=== PATIENT | female | born 2000 | race Caucasian/White ===

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

== ENCOUNTER 2023-04-04 19:40 | Emergency (ER) | payer OTHER, SELFPAY ==
[2023-04-04] MEDS ORDERED: ACETAMINOPHEN 500 MG TAB ONE (20:15)
--- NOTE | 2023-04-04 21:10 | EDPHYS ---
Physician Documentation [facility] Name: Elizabeth Hodge Age: 22 yrs Sex: Female : 2000 Arrival Date: 04/04/2023 Time: 19:40 Bed 12 Private MD: ED Physician Monico Flowers HPI: 04/04 20:10 This 22 yrs old Female presents to ER via Ambulatory with complaints of Sore Throat. cp 20:10 The patient presents with sore throat. Onset: The symptoms/episode began/occurred this cp morning. Severity of symptoms: in the emergency department the symptoms are unchanged, despite home interventions. Associated signs and symptoms: Pertinent positives: headache, Pertinent negatives diarrhea, rhinorrhea, vomiting, cough. 20:10 Reports recently tested positive for influenza and strep. 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 - Social history:: Smoking status: Patient reports the use of cigarette tobacco products, smokes one-half pack cigarettes per day. ROS: 20:15 Constitutional: Positive for body aches, Negative for fever, poor PO intake. cp 20:15 Eyes: Negative for injury, pain, redness, and discharge. cp 20:15 ENT: Positive for sore throat, Negative for drainage from ear(s), ear pain, sinus congestion, difficulty swallowing, difficulty handling secretions. 20:15 Cardiovascular: Negative for chest pain. 20:15 Respiratory: Negative for cough, shortness of breath, wheezing. 20:15 Abdomen/GI: Negative for abdominal pain, vomiting, diarrhea, constipation. 20:15 Skin: Negative for rash. 20:15 Neuro: Positive for headache, Negative for altered mental status, dizziness, weakness. 20:15 All other systems are negative. Exam: 20:15 Constitutional: The patient appears in no acute distress, alert, awake, well developed, cp well nourished, overweight 20:15 Head/Face: Normocephalic, atraumatic. cp 20:15 Eyes: Periorbital structures: appear normal, Conjunctiva: normal, no exudate, no injection, Lids and lashes: appear normal, bilaterally. 20:15 ENT: External ear(s): are unremarkable, Ear canal(s): are normal, clear, TM's: bulging, is not appreciated, bilaterally, dullness, bilaterally, erythema, is not appreciated, bilaterally, Nose: is normal, Mouth: Lips: moist, Oral mucosa: moist, Posterior pharynx: Airway: no evidence of obstruction, patent, Tonsils: no enlargement, no exudate, swelling, is not appreciated, erythema, that is moderate, exudate, is not appreciated. 20:15 Neck: ROM/movement: is normal, is supple, no range of motions limitations, no meningismus, no nuchal rigidity, Lymph nodes: no appreciated lymphadenopathy. 20:15 Chest/axilla: Inspection: normal. 20:15 Cardiovascular: Rate: tachycardic, Rhythm: regular. 20:15 Respiratory: the patient does not display signs of respiratory distress, Respirations: normal, no use of accessory muscles, no retractions, labored breathing, is not present, Breath sounds: are clear throughout, no decreased breath sounds, no stridor, no wheezing. 20:15 Abdomen/GI: Exam negative for discomfort, distension, guarding, Inspection: abdomen appears normal. 20:15 Skin: no rash present. Vital Signs: 19:50 BP 134 / 82; Pulse 115; Resp 18 S; Temp 99.8(O); Pulse Ox 100% on R/A; Weight 104.33 kg as6 (R); Height 5 ft. 4 in. (R); Pain 8/10; 21:21 BP 132 / 78; Pulse 114; Resp 18 S; Temp 100.1(O); Pulse Ox 100% on R/A; as6 19:50 Body Mass Index 39.48 (104.33 kg, 162.56 cm) as6 19:50 Pain Scale: Adult as6 MDM: 19:56 Patient medically screened. cp 21:00 Differential diagnosis: apthous stomatitis, apthous ulcer, group A strep tonsillitis, cp mononucleosis, peritonsillar abscess retropharyngeal abcess tonsillitis, uvulitis, influenza. 21:10 Data reviewed: vital signs, nurses notes, lab test result(s). 04/04 20:03 Order name: Strep cp 04/04 21:08 Interpretation: Reviewed. cp 04/04 20:03 Order name: Influenza Screen (a \\T\\ B); Complete Time: 21:08 cp 04/04 20:04 Order name: COVID-19 SARS RT PCR; Complete Time: 21:08 as6 04/04 20:57 Order name: Throat Culture EDMS Administered Medications: 20:07 Not Given (Physician Discretion): Viscous Lidocaine Mucous Membrane Liquid (4 %) 5 ml cp Mucous Membrane once 20:11 Drug: Acetaminophen PO 1000 mg Route: PO; as6 21:20 Follow up: Response: No adverse reaction as6 Disposition Summary: 04/04/23 21:10 Discharge Ordered Location: Home cp Problem: new cp Symptoms: have improved cp Condition: Stable cp Diagnosis - Influenza due to unidentified influenza virus with other respiratory manifestations cp Followup: cp - With: Private Physician - When: 2 - 3 days - Reason: Worsening of condition Discharge Instructions: - Discharge Summary Sheet cp - Influenza, Adult cp Forms: - Medication Reconciliation Form cp - Thank You Letter cp - Antibiotic Education cp - Prescription Opioid Use cp - Patient Portal Instructions cp - Work release form as6 Prescriptions: - Ibuprofen 800 mg Oral Tablet - take 1 tablet by ORAL route every 8 hours As needed take with food; 30 tablet; cp Refills: 0, Product Selection Permitted - Tamiflu 75 mg Oral Capsule - take 1 tablet by ORAL route every 12 hours for 5 days; 10 tablet; Refills: 0, cp Product Selection Permitted Signatures: Dispatcher [employer] EDArnold Vaughn PA PA cp Slawson, Ashby, RN RN as6
--- NOTE | 2023-04-04 21:10 | ER ---
Nurse's Notes [facility] Name: Elizabeth Hodge Age: 22 yrs Sex: Female : 2000 Arrival Date: 04/04/2023 Time: 19:40 Bed 12 Private MD: Diagnosis: Influenza due to unidentified influenza virus with other respiratory manifestations Presentation: 04/04 19:50 Chief complaint: Patient states: "my tested positive for flu and strep and I'm as6 started to have the same symptoms". Coronavirus screen: At this time, the client does not indicate any symptoms associated with coronavirus-19. Ebola Screen: No symptoms or risks identified at this time. Initial Sepsis Screen: Does the patient meet any 2 criteria? No. Patient's initial sepsis screen is negative. Does the patient have a suspected source of infection? No. Patient's initial sepsis screen is negative. Risk Assessment: Do you want to hurt yourself or someone else? Patient reports no desire to harm self or others. Onset of symptoms was April 04, 2023. 19:50 Method Of Arrival: Ambulatory as6 19:50 Acuity: HAIR 4 as6 Triage Assessment: 19:52 General: Appears in no apparent distress. Behavior is calm, cooperative, Reports as6 feeling ill for. Pain: Complains of pain in left aspect of posterior pharynx and right aspect of posterior pharynx. EENT: Reports sore throat. 20:01 Respiratory: Respiratory effort is even, unlabored. 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 - Social history:: Smoking status: Patient reports the use of cigarette tobacco products, smokes one-half pack cigarettes per day. Screenin:01 [facility] ED Fall Risk Assessment (Adult) Score/Fall Risk Level 0 - 2 = Low Risk. Abuse as6 screen: Denies threats or abuse. Denies injuries from another. Nutritional screening: No deficits noted. Tuberculosis screening: No symptoms or risk factors identified. Vital Signs: 19:50 BP 134 / 82; Pulse 115; Resp 18 S; Temp 99.8(O); Pulse Ox 100% on R/A; Weight 104.33 kg as6 (R); Height 5 ft. 4 in. (R); Pain 8/10; 21:21 BP 132 / 78; Pulse 114; Resp 18 S; Temp 100.1(O); Pulse Ox 100% on R/A; as6 19:50 Body Mass Index 39.48 (104.33 kg, 162.56 cm) as6 19:50 Pain Scale: Adult as6 ED Course: 19:45 Patient arrived in ED. ag3 19:45 Arnold Potter PA is PHCP. cp 19:45 Monico Flowers MD is Attending Physician. cp 19:50 Juan Nelson, ELIZABETH is Primary Nurse. as6 19:52 Triage completed. as6 19:54 Arm band placed on. as6 20:01 Bed in low position. Call light in reach. Side rails up X 1. as6 21:20 Provided Education on: discharge teaching. as6 21:20 No provider procedures requiring assistance completed. Patient did not have IV access as6 during this emergency room visit. Administered Medications: 20:07 Not Given (Physician Discretion): Viscous Lidocaine Mucous Membrane Liquid (4 %) 5 ml cp Mucous Membrane once 20:11 Drug: Acetaminophen PO 1000 mg Route: PO; as6 21:20 Follow up: Response: No adverse reaction as6 Medication: 20:01 VIS not applicable for this client. as6 Outcome: 21:10 Discharge ordered by MD. cp 21:21 Discharged to home ambulatory. as6 21:21 Condition: stable 21:21 Discharge instructions given to patient, Instructed on discharge instructions, follow up and referral plans. medication usage, Demonstrated understanding of instructions, follow-up care, medications, Prescriptions given X 2. 21:22 Patient left the ED. as6 Signatures: Arnold Potter PA PA cp Gomez, Alice ag3 Juan Nelson, RN RN as6
[2023-04-04 21:33] VITALS: O2SAT 100
[2023-04-04 21:34] VITALS: BP 132/78; TEMP 100.1
== END 2023-04-04 21:22 | disposition home or self-care (01) ==
LOC: ER 19:40
DX: J11.1 Influenza due to unidentified influenza virus with other respiratory manifestations (principal)
CPT/HCPCS: 87070; 87081; 87635; 87804; 99283

== ENCOUNTER 2024-07-21 08:04 | Emergency (ER) | payer SELFPAY ==
[2024-07-21 08:54] LABS: Specific Gravity < 1.005 (1.005-1.030); Sqamous Epithelial <5 /HPF (None Seen); Urine Bacteria None Seen /HPF (<20); Urine Bilirubin NEGATIVE (Negative); Urine Blood 3+ (OVER) (Negative); Urine Clarity Extremely Turbid (Clear); Urine Color Light-Brown (Yellow); Urine Crystals Unidentified Few /HPF (None Seen); Urine Culture Reflex Order NOT NEEDED; Urine Glucose NEGATIVE (Negative); Urine Ketones NEGATIVE (Negative); Urine Micro Reflex YN NO BILL MICROSCOPIC; Urine Nitrite NEGATIVE (Negative); Urine Protein TRACE (Negative); Urine RBC <5 /HPF (None Seen); Urine Urobilinogen Normal (Normal); Urine WBC <5 /HPF (<5); Urine WBC Clump Rare /HPF (None Seen); Urine Yeast (Budding) Trace /HPF (None Seen)
[2024-07-21 09:26] LABS: Absolute Lymphocytes (CBC) 0.8 K/uL (0.7-4.9); Absolute Monocytes 0.4 K/uL (0.1-1.3); Absolute Neutrophil 5.3 K/uL (1.8-8.0); Basophils % 0.7 % (0-1.3); Eosinophils % 0.6 % (0-4.4); Hematocrit 25.7 % (36.0-45.0); Hemoglobin 9.6 g/dL (12.0-15.0); Lymphocytes % 11.6 % (15.3-44.8); MCH 32.9 pg (27.0-35.0); MCHC 37.3 g/dL (32.0-36.0); MCV 88.3 fL (80-100); MPV 7.4 fL (7.6-11.3); Monocytes % 6.1 % (3.3-12.3); Nucleated Red Blood Cells % 0.1 % (0-0); Platelets 198 thou/uL (152-406); RBC Red Blood Cell Count 2.91 M/uL (3.86-4.86); Red Cell Distribution Width 20.9 % (12.1-15.2)
[2024-07-21 09:48] LABS: Albumin/Globulin Ratio 1.3 (1.1-1.8); Anion Gap 8.1 mEq/L (5.0-15.0); Globulin 3.1 g/dL (2.3-3.5); Potassium 3.1 mEq/L (3.5-5.1); Protein, Total 7.1 g/dL (6.4-8.2)
--- NOTE | 2024-07-21 10:11 | RAD REPORT ---
EXAMINATION: US Transvaginal OB COMPARISON: None. HISTORY: [facility] MAIN vaginal bleeding and Bed: TECHNIQUE: Real-time ultrasound was performed through the pelvis. A transvaginal scan was performed t o better visualize the intrauterine contents and adnexa. FINDINGS: There is flattened cystic component near the fundus measuring 6 x 6 x 3 mm. No pole or ca rdiac pulsations identified. A second smaller fluid component near the fundal endometrium, could represent another cystic component or fluid measuring 1-2 mm in thickness. Both ovaries are visualized. Dominant right ovarian mildly complex cyst measuring up to 2.5 cm. Small left ovarian 1.6 cm cystic lesion with ring of fire vascularity suggesting a corpus luteum. There is no free fluid in the cul-de-sac. Measurements and Calculations: Dominant gestational sac mean diameter: 5.0 mm, consistent with a sonographic age of 5 weeks, 2 days. IMPRESSION: Small cystic spaces within the fundal endometrium, one of which may represent a gestational sac. No f etal pole or cardiac pulsations are identified. Given size of the dominant cystic component, it would correspond to a sonographic gestational age of 5 weeks and 2 days. Correlation with beta hCG levels recommended. A follow-up ultrasound would be suggested within one we ek to reevaluate for viability.
--- NOTE | 2024-07-21 10:24 | EDPHYS ---
Physician Documentation [facility] Name: Elizabeth Hodge Age: 23 yrs Sex: Female : 2000 Arrival Date: 07/21/2024 Time: 08:04 Bed 8 Private MD: ED Physician Surjit Harrison HPI: 07/21 08:39 This 23 yrs old Female presents to ER via Ambulatory with complaints of Vaginal ec2 Bleeding, + Preg <12wks, Pelvic Pain. 08:39 Patient is arrives today for vaginal bleeding onset of 2 days ago. Reports that ec2 she has been having some vaginal bleeding which she describes as light red in color, reports she is having some lower abdominal discomfort and pelvic pain. Patient reports she is approximately 9 weeks . G2, P0.. Historical: - Allergies: 08:27 No Known Allergies; hb - PMHx: 10:13 Hereditary Spherocytosis; ec2 - PSHx: 08:27 Cholecystectomy; hb - Immunization history:: Adult Immunizations up to date. - Infectious Disease History:: Denies. - Social history:: Smoking status: Patient denies any tobacco usage or history of. ROS: 08:39 Constitutional: as per hpi ec2 Exam: 08:39 Constitutional: GEN: NAD Head: atraumatic Eyes: EOMI Ears: External ears are ec2 normal. CV: regular rate LUNGS: no respiratory distress ABD: non-distended SKIN: no evidence of rashes MSK: no evidence of trauma Vital Signs: 08:18 BP 134 / 86; Pulse 88; Resp 16; Temp 97.6(TE); Pulse Ox 100% on R/A; Weight 104.33 kg; hb Height 5 ft. 4 in. ; Pain 5/10; 10:21 BP 137 / 80; Pulse 86; Resp 16; Pulse Ox 99% ; Pain 0/10; ss 08:18 Body Mass Index 39.48 (104.33 kg, 162.56 cm) hb 08:18 Pain Scale: Adult hb 10:21 Pain Scale: Adult ss MDM: 08:10 Medical Screening Exam initiated ec2 08:39 Data reviewed: vital signs. ED course: Patient arrives today for evaluation of vaginal ec2 bleeding in setting of . Examination is nonactionable. Will obtain lab work, ABO Rh and ultrasound. Differential includes normal with vaginal bleeding, miscarriage, subchorionic hemorrhage.. 10:06 ED course: hCG appropriately elevated. Patient is A+ blood type, will forego RhoGAM. ec2 Metabolic profile shows slight total bili elevation, compared to previous, patient with previously elevated total bilirubin as well. Pending ultrasonography. Patient without any pinpoint tenderness of the right upper quadrant to indicate choledocholithiasis, patient is otherwise nontoxic, doubt acute obstructive process. Patient does have a history of hereditary spherocytosis which is likely cause of pt's t bili elevation. 10:22 ED course: Ultrasound shows likely at 5 weeks and 2 days, very early ec2 gestational age, will have patient follow-up with obstetrics for repeat hCG and repeat ultrasonography. Discussed results with the patient and she agrees. Return precautions given.. 07/21 08:10 Order name: CBC with Diff ec2 07/21 08:10 Order name: CMP; Complete Time: 10:06 ec2 07/21 08:10 Order name: HCG-Quantitative; Complete Time: 10:06 ec2 07/21 08:10 Order name: Abo/rh Typing; Complete Time: 09:56 ec2 07/21 08:10 Order name: UAM; Complete Time: 09:46 ec2 07/21 08:10 Order name: Transvaginal OB US; Complete Time: 10:22 ec2 07/21 08:10 Order name: IV Start; Complete Time: 09:22 ec2 Administered Medications: No medications were administered Disposition Summary: 07/21/24 10:23 Discharge Ordered Condition: Stable ec2 Diagnosis - Abnormal uterine and vaginal bleeding, unspecified ec2 - Early , 5 weeks ec2 Followup: ec2 - With: Private Physician - When: - Reason: Re-evaluation by your physician Discharge Instructions: - Discharge Summary Sheet ec2 - Vaginal Bleeding During , First Trimester, [id number] ec2 Forms: - Work release form ss - Family Work Release ss - Medication Reconciliation Form ec2 - Antibiotic Education ec2 - Prescription Opioid Use ec2 - Patient Portal Instructions ec2 - Leadership Thank You Letter ec2 Signatures: Dispatcher [employer] Andreina Meyers RN RN hb Corral, Edwin, MD MD ec2 Corrections: (The following items were deleted from the chart) 10:13 10:06 ED course: hCG appropriately elevated. Patient is A+ blood type, will forego ec2 RhoGAM. Metabolic profile shows slight total bili elevation, compared to previous, patient with previously elevated total bilirubin as well. Pending ultrasonography. Patient without any pinpoint tenderness of the right upper quadrant to indicate choledocholithiasis, patient is otherwise nontoxic, doubt acute obstructive process.. ec2
--- NOTE | 2024-07-21 10:24 | ER ---
Nurse's Notes [facility] Name: Elizabeth Hodge Age: 23 yrs Sex: Female : 2000 Arrival Date: 07/21/2024 Time: 08:04 Bed 8 Private MD: Diagnosis: Abnormal uterine and vaginal bleeding, unspecified;Early , 5 weeks Presentation: 07/21 08:18 Chief complaint: Lower abdominal and pelvic pain x 2 days, bright red vaginal bleeding hb this morning. Pt is approx 9 weeks , LMP 05/20, . Coronavirus screen: At this time, the client does not indicate any symptoms associated with coronavirus-19. Ebola Screen: No symptoms or risks identified at this time. Initial Sepsis Screen: Does the patient meet any 2 criteria? No. Patient's initial sepsis screen is negative. Does the patient have a suspected source of infection? No. Patient's initial sepsis screen is negative. Risk Assessment: Do you want to hurt yourself or someone else? Patient reports no desire to harm self or others. Onset of symptoms was July 20, 2024. 08:18 Method Of Arrival: Ambulatory hb 08:18 Acuity: HAIR 3 hb Historical: - Allergies: 08:27 No Known Allergies; hb - PMHx: 10:13 Hereditary Spherocytosis; ec2 - PSHx: 08:27 Cholecystectomy; hb - Immunization history:: Adult Immunizations up to date. - Infectious Disease History:: Denies. - Social history:: Smoking status: Patient denies any tobacco usage or history of. Screenin:50 Abuse screen: Denies threats or abuse. Denies injuries from another. Nutritional ss screening: No deficits noted. Tuberculosis screening: Never had TB. Assessment: 08:50 General: Appears in no apparent distress. comfortable, Behavior is calm, cooperative. ss Pain: Denies pain. Respiratory: Airway is patent Respiratory effort is even, unlabored, Respiratory pattern is regular, symmetrical. : Reports vaginal bleeding that is. EENT: Oral mucosa is moist. 09:20 Reassessment: Pt c/o nausea. States, "I think I'm nauseated since I haven't had ss anything to eat." Saltine crackers and maria alejandra sofi given. 10:08 Reassessment: Patient appears in no apparent distress at this time. Patient and/or ss family updated on plan of care and expected duration. Pain level reassessed. Patient is alert, oriented x 3, equal unlabored respirations, skin warm/dry/pink. nausea has improved. Vital Signs: 08:18 BP 134 / 86; Pulse 88; Resp 16; Temp 97.6(TE); Pulse Ox 100% on R/A; Weight 104.33 kg; hb Height 5 ft. 4 in. ; Pain 5/10; 10:21 BP 137 / 80; Pulse 86; Resp 16; Pulse Ox 99% ; Pain 0/10; ss 08:18 Body Mass Index 39.48 (104.33 kg, 162.56 cm) hb 08:18 Pain Scale: Adult hb 10:21 Pain Scale: Adult ED Course: 08:09 Patient arrived in ED. 5 08:10 Surjit Harrison MD is Attending Physician. ec2 08:26 Triage completed. hb 08:27 Arm band placed on. 08:41 Bernadette Larose RN is Primary Nurse. 08:50 Patient has correct armband on for positive identification. ss 09:21 Transvaginal OB US In Process Unspecified. EDMS 09:23 Abo/rh Typing Sent. ss 09:23 HCG-Quantitative Sent. ss 09:23 CMP Sent. ss 09:24 CBC with Diff Sent. 10:28 No provider procedures requiring assistance completed. IV discontinued, intact, ss bleeding controlled, No redness/swelling at site. Pressure dressing applied. Administered Medications: No medications were administered Medication: 08:50 VIS not applicable for this client. Outcome: 10:23 Discharge ordered by . ec2 10:28 Discharged to home ambulatory, 10:28 Condition: good 10:28 Discharge instructions given to patient, family, Instructed on discharge instructions, follow up and referral plans. Demonstrated understanding of instructions, follow-up care, 10:32 Patient left the ED. Signatures: Dispatcher [employer] Bernadette Quiñones RN RN Andreina Lopez RN RN Aimee Pereyra [facility] Surjit Harrison MD MD ec2
[2024-07-21 10:39] VITALS: TEMP 97.6
[2024-07-21 10:41] VITALS: BP 137/80; O2SAT 99
[2024-07-21 11:47] LABS: Blood Morphology Comment NOTED (NOT SEEN); Platelet Estimate ADEQ; Polychromasia 1+; White Blood Cell Scan OK (OK)
== END 2024-07-21 10:32 | disposition home or self-care (01) ==
LOC: ER 08:04
DX: O20.9 Hemorrhage in early pregnancy, unspecified (principal); Z3A.01 Less than 8 weeks gestation of pregnancy
CPT/HCPCS: 36415; 76817; 80053; 81001; 84702; 85025; 86900; 86901; 99283

== ENCOUNTER 2025-05-16 09:25 | Emergency (ER) | payer OTHER ==
--- OUTSIDE RECORDS SUMMARY | 2025-05-16 09:32 | XMS REPORT | Continuity of Care Document ---
Author Name Unknown Address [address] [facility] [address] [place] [address] [facility] Address [address] [facility] [address] [place] [address] Care Team Providers Care Fixed Income Manager Name Role Phone Tessie Saxena [facility] Primary Care Physician [phone] EZEKIEL CLEANING Attending Clinician Unavailable ROMAN XIAO Attending Clinician Unavailable Doctor Unassigned, [place] Attending Clinician U KOSTA Lyn Attending Clinician Unavaila ELIZABETH Dang Attending Clinician Unavailable ELIZABETH QUINONEZ Attending Clinician Unavailable Parth Novak MD Attending Clinician [phone] Renato Murphy MD Attending Clinician [phone] JAIR COOPER Attending Clinician Unavailable Bipin Evans Attending Clinician + SAL ABDUL Attending Clinician Unavailable SAL ABDUL Attending Clinician Unavailable ALONDRA PISANO Attending Clinician Unavailable BIPIN MORAN Attending Clinician Unavail able Ultrasound, Ang[facility] Attending Clinician UnavailBryn Ponce MD Attending Clinician [phone] BRYN SUBRAMANIAN Attending Clinician Unavailable BRYN SUBRAMANIAN Attending Clinician Unavailable BRYN SUBRAMANIAN Attending Clinician Unavailable ADUMSMILEY Attending Clinician Unavailable ADUM, SMILEY Zelaya Attending Clinician Unavailable JENELLE RUDOLPH Attending Clinician Unavailable Risk, Jwa-Kvxyc-Bh/High Attending Clinician Unav ailable Ronni WHCNJenelle Amador Attending Clinician LANDON CHAPA Attending Clinician Unavailable LANDON CHAPA Attending Clinician Unavailable 1, [facility] Attending Clinician Unavailab ralph Chapa MD, Landon Cates Attending Clinician [phone] NA BAGLEY Attending Clinician NA Rodas Attending Clinician DIMITRIS Garnica Attending Clinician Unavailable DIMITRIS HIGHTOWER Attending Clinician Unavailable Visit, [facility] Nurse Attending Clinician Unava ilpatricio Moran [facility], Bipin Orr Attending Clinician + MARY ELLEN FERNANDEZ Attending Clinician Unavailable Trimester, [facility] Res-1st Attending Clinician Unavailable Rebecca Flowers MD Attending Clinician [phone] Gaetano May MD Attending Clinician [phone] Sunita Pitt RN Attending Clinician Unavailable Raul FREIRE, Edwin Zelaya Attending Clinician [phone] Anahi Ham MD, Elias Attending Clinician + Shadia Shoemaker Attending Clinician [phone] SHADIA ELLSWORTH Attending Clinician Unavailab le Doctor Unassigned, [place] Attending Clinician U navailALONDRA Villagran Admitting Clinician Unavailable ADUMSMILEY Admitting Clinician Unavailable ELIZABETH QUINONEZ Admitting Clinician Unavailable NA BAGLEY Admitting Clinician DIMITRIS Garnica Admitting Clinician Unavailable Payers Payer Name Policy Type Policy Number Effective Date Expirati on Date Source [facility] [id number] 2024 00:00:00 [facility] [id number] 2020 00:00:00 [place] [id number] 2020 00:00:00 [facility] [id number] 2024 00:00:00 FAUSTO BARBOUR [id number] 2024 00:00:00 Problems Condition Name Condition Details Condition Category Status Onset Date Resolution Date Last Treatment Date Treating Clinician Comments Source Acute blood loss anemia Acute blood loss anemia Disease Active 03-15 00:00: 00 [facility] Pre-eclamp mickey, delivered Pre-eclamp mickey, delivered Disease Active 03-14 00:00: 00 [facility] Morbid obesity with body mass index of 40.0-49.9 Morbid obesity with body mass index of 40.0-49.9 Disease Active 02-13 00:00: 00 [facility] Spherocyto sis Spherocyto sis Problem Active 10-05 00:00: 00 [facility] Problem Active 10-05 00:00: 00 [facility] High risk teen in first trimester High risk teen in first trimester Disease Active 03-28 00:00: 00 [facility] Spherocyto sis Spherocyto sis Disease Active 03-28 00:00: 00 [facility] (spontaneo us vaginal delivery) (spontaneo us vaginal delivery) Disease Resolve d 03-14 00:00: 00 2025-04-04 00:00:00 2025-04-04 13:39:52 [facility] Single live Single live Disease Resolve d 03-14 00:00: 00 2025-04-04 00:00:00 2025-04-04 13:39:53 [facility] Positive GBS test Positive GBS test Disease Resolve d 6 00:00: 00 2025-04-04 00:00:00 2025-04-04 13:39:54 [facility] Obstetrica l laceration Obstetrica l laceration Disease Resolve d 03-14 00:00: 00 2025-04-04 00:00:00 2025-04-04 13:39:25 [facility] 39 weeks gestation of 39 weeks gestation of Disease Resolve d 2024-0 6-23 00:00: 00 2025-04-04 00:00:00 2025-04-04 13:39:50 [facility] Encounter for elective induction of labor Encounter for elective induction of labor Disease Resolve d 2024-0 6-23 00:00: 00 2025-04-04 00:00:00 2025-04-04 13:40:31 [facility] Current every day vaping: Nicotine Current every day vaping: Nicotine Disease Resolve d 0 6-23 00:00: 00 2025-04-04 00:00:00 2025-04-04 13:39:51 [facility] NST (non-stres s test) nonreactiv e NST (non-stres s test) nonreactiv e Disease Resolve d 0 5-27 00:00: 00 2025-04-04 00:00:00 2025-04-04 13:39:49 [facility] Cramping affecting , antepartum Cramping affecting , antepartum Disease Resolve d 0 5-27 00:00: 00 2025-04-04 00:00:00 2025-04-04 13:39:24 [facility] Two vessel cord Two vessel cord Disease Resolve d 0 4-15 00:00: 00 2025-04-04 00:00:00 2025-04-04 13:39:47 [facility] Anemia of mother in , antepartum Anemia of mother in , antepartum Disease Resolve d 0 4-01 00:00: 00 2025-04-04 00:00:00 2025-04-04 13:39:37 [facility] Susceptibl e to varicella (non-immun e), currently Susceptibl e to varicella (non-immun e), currently Disease Resolve d 0 4-01 00:00: 00 2025-04-04 00:00:00 2025-04-04 13:39:36 [facility] Cervical Papanicola ou smear negative within last 12 months Cervical Papanicola ou smear negative within last 12 months Disease Resolve d 2024-0 3-31 00:00: 00 2025-04-04 00:00:00 2025-04-04 13:39:36 [facility] History of miscarriag e, currently History of miscarriag e, currently Disease Resolve d 2024-0 3-27 00:00: 00 2025-04-04 00:00:00 2025-04-04 13:39:32 [facility] Low lying placenta, antepartum Low lying placenta, antepartum Disease Resolve d 2024-0 3-27 00:00: 00 2025-04-04 00:00:00 2025-04-04 13:39:23 [facility] Supervisio n of high-risk Supervisio n of high-risk Disease Resolve d 7-09 00:00: 00 2025-04-04 00:00:00 2025-04-04 13:39:29 [facility] Obesity in Obesity in Disease Resolve d 2019-0 7-09 00:00: 00 2025-04-04 00:00:00 2025-04-04 13:40:37 [facility] 35 weeks gestation of 35 weeks gestation of Disease Resolve d 0 5-27 00:00: 00 2025-02-21 00:00:00 2025-02-21 10:18:09 [facility] Maternal varicella, non-immune Maternal varicella, non-immune Disease Resolve d 2019- 7-10 00:00: 00 2024-12-14 00:00:00 2024-12-14 09:48:46 Overview: Formattin g of this note might be different from the original. Address in [facility] Primigravi da in first trimester Primigravi da in first trimester Disease Resolve d 2019-0 7-09 00:00: 00 2024-12-14 00:00:00 2024-12-14 09:48:28 [facility] Urinary tract infection in mother during first trimester of Urinary tract infection in mother during first trimester of Disease Resolve d 2019-0 7-09 00:00: 00 2024-12-14 00:00:00 2024-12-14 09:47:12 [facility] BMI 33.0-33.9, adult BMI 33.0-33.9, adult Disease Resolve d 03-28 00:00: 00 2024-12-14 00:00:00 2024-12-14 09:47:35 [facility] Allergies, Adverse Reactions, Alerts Allergy Name Allergy Type Status Severity Reaction(s) Onset Date Inactive Date Treating Clinician Comments Source NO KNOWN ALLERGIE S Drug Class Active [facility] Social History Social Habit Start Date Stop Date Quantity Comments Source ASSERTION 2024-06-26 00:00:00 [facility] History SDOH Alcohol Std Drinks [facility] History SDOH Alcohol Binge [facility] Exposure to SARS-CoV-2 (event) Not sure [facility] History of tobacco use Current smoker [facility] Sexual orientation [facility] Alcoholic beverage intake 2025-03-12 00:00:00 2025-03-12 00:00:00 Lifetime non-drinker (finding) [facility] History of Social function 2024-12-28 00:00:00 2024-12-28 00:00:00 [facility] Tobacco use and exposure 2024-12-14 00:00:00 2024-12-14 00:00:00 Former smokeless tobacco user [facility] Alcohol intake 2020-06-06 00:00:00 2020-06-06 00:00:00 Lifetime non-drinker (finding) [facility] History SDOH Alcohol Frequency 2020-03-28 00:00:00 2020-03-28 00:00:00 1 [facility] Sex assigned at 2000 00:00:00 2000 00:00:00 [facility] Smoking Status Start Date Stop Date Source Never Smoker [facility] Unknown if ever smoked [facility] Ex-smoker 2024-12-14 00:00:00 2024-12-14 00:00:00 [facility] Medications Ordered Medication Name Filled Medication Name Start Date Stop Date Current Medication? Ordering Clinician Indication Dosage Frequency Signature (SIG) Comments Components Source [id number] fum-folic 27 mg iron- 1 mg folic tablet [id number] fum-folic 27 mg iron- 1 mg folic tablet 03-15 00:00: 00 Yes [id number] 1{tbl} Take 1 tablet by mouth in the morning. [facility] docusate 100 mg capsule docusate 100 mg capsule 03-15 00:00: 00 Yes [id number] 200mg Take 2 capsules by mouth once daily as needed for Constipati on. [facility] ferrous sulfate 325 mg (65 mg iron) tablet ferrous sulfate 325 mg (65 mg iron) tablet 03-15 00:00: 00 Yes [id number] 325mg Take 1 tablet by mouth in the morning. [facility] ibuprofen 800 mg tablet ibuprofen 800 mg tablet 03-15 00:00: 00 Yes [id number] 800mg Take 1 tablet by mouth every 8 hours as needed (pain). Take with food or milk. [facility] ibuprofen (IBU) tablet 600 mg ibuprofen (IBU) tablet 600 mg 03-14 13:15: 00 03-15 19:12 :50 Yes 600mg 600 mg, Oral, TID, First dose on Wed03/14/25 at 0815, Until Discontinu ed, Routine [facility] acetaminoph en (TYLENOL) tablet 650 mg acetaminoph en (TYLENOL) tablet 650 mg 03-14 12:00: 00 03-15 19:12 :50 Yes 650mg 650 mg, Oral, TID, First dose on Wed03/14/25 at 0700, Until Discontinu ed, Routine [facility] rho(D) immune globulin (RHOPHYLAC) injection 300 mcg 03-14 11:45: 13 03-15 19:12 :50 No 300ug [facility] diphenhydrA MINE (BENADRYL) tablet 25 mg 03-14 11:45: 07 03-15 19:12 :50 No 25mg [facility] ondansetron (ZOFRAN (PF)) injection 4 mg 03-14 11:45: 07 03-15 19:12 :50 No 4mg [facility] simethicone (GAS RELIEF (SIMETHICON E)) chewable tablet 160 mg 03-14 11:45: 07 03-15 19:12 :50 No 160mg [facility] docusate (COLACE) capsule 200 mg docusate (COLACE) capsule 200 mg 03-14 11:45: 07 03-15 19:12 :50 Yes 200mg 200 mg, Oral, QDAILYPRN, Starting on Wed03/14/25 at 0645, Until Wed03/15/25 at 1412, Routine, Constipati on [facility] magnesium hydroxide (MILK OF MAGNESIA) 400 mg/5 mL suspension 30 mL 03-14 11:45: 07 03-15 19:12 :50 No 30mL [facility] benzocaine- menthol (DERMOPLAST ) 20-0.5 % topical spray benzocaine- menthol (DERMOPLAST ) 20-0.5 % topical spray 03-14 11:45: 07 03-15 19:12 :50 Yes Topical, PRN, Starting on Wed03/14/25 at 0645, Until Wed03/15/25 at 1412, Routine, Perineum discomfort [facility] ondansetron (ZOFRAN (PF)) injection 4 mg 03-14 10:15: 00 03-14 08:03 :00 No 4mg 4 mg, Slow IV Push, ONCE, On Wed03/14/25 at 0515, For 1 dose, Please give medication over 2-5 minutes. [facility] lidocaine 2% (XYLOCAINE) 20 mg/mL (2 %) injection 03-13 23:15: 00 03-14 11:52 :11 No Epidural, ONCE INTRA PROCEDURE, Starting on Wed03/13/25 at 1815, Until Wed03/14/25 at 0652, Routine, Intra-op [facility] bupivacaine (preserv free) (SENSORCAIN E MPF) 0.25 % (2.5 mg/mL) injection 03-13 23:15: 00 03-14 11:52 :11 No Epidural, ONCE INTRA PROCEDURE, Starting on Wed03/13/25 at 1815, Until Wed03/14/25 at 0652, Routine, Intra-op [facility] Oxytocin in Normal Saline 30 unit/500 mL IV infusion Soln Oxytocin in Normal Saline 30 unit/500 mL IV infusion Soln 03-13 13:15: 00 03-14 11:45 :12 Yes 0mU/min 0-42 marquis-unit s/min (0-42 mL/hr), IV Infusion, CONTINUOUS , Starting on Wed03/13/25 at 0830, Infuse IV through a controlled infusion pump at a proximal port on the peripheral IV line. Oxytocin may be increased to 30 milliunits when ordered by a 3rd or 4th year resident or attending physician/ faculty. 3rd or 4th year resident must document a note that the increase to 30 milliunits was discussed with faculty. Oxytocin may be increased to 42 milliunits when ordered by a 3rd or 4th year resident or attending physician/ faculty. 3rd or 4th year resident must document a note that the increase to 42 milliunits was discussed with faculty. Max 42 marquis-unit s/min. Oxytocin shall be maintained at a rate that achieves adequate contractio ns. "Adequate contractio ns" means 3-5 contractio ns in 10 minutes averaged over a 30-minute window -or- at least 200 MVU every 10 minutes for 2 hours if an IUPC is in place. Incrementa l dosage of oxytocin is determined by uterine and response; therefore the RN may increase or decrease the dosage by 6mu or discontinu e oxytocin based on maternal and assessment . See policy 7.11.52. For post-deliv vincent uterotonic : Increase to 300 mL/hr for 1 hr then 150 mL/hr for 1 hr. For post delivery uterine atony: Start at 600 mL/hr for 1 hr then 150 mL/hr for 1 hr. [facility] lidocaine-e pinephrine (XYLOCAINE W/EPINEPHRI NE) 1.5 %-1:200,000 injection 03-13 08:54: 00 03-14 11:52 :12 No Epidural, ONCE INTRA PROCEDURE, Starting on Wed03/13/25 at 0354, Until Wed03/14/25 at 0652, Routine, Intra-op [facility] PIB ropivacaine 0.2 % (NAROPIN (PF)) epidural infusion 03-13 08:54: 00 03-14 11:52 :12 No Epidural, CONTINUOUS PRN, Starting on Wed03/13/25 at 0354, Until Wed03/14/25 at 0652, Routine, Intra-op [facility] sodium citrate-cit gregg acid (BICITRA) 500-334 mg/5 mL solution 30 mL 03-13 08:13: 53 03-13 08:42 :00 No 30mL 30 mL, Oral, PRE-PROCED URE ONCE, 1 dose, Starting on Wed03/13/25 at 0313, Until Wed03/13/25 at 0342, Routine, Surgery/Pr ocedure [facility] lactated ringers IV infusion 500 mL 03-13 08:13: 53 03-13 09:13 :43 No 500mL at 999 mL/hr, 500 mL, IV Infusion, PRN - SEE INSTRUCTIO NS, 1 dose, Starting on Wed03/13/25 at 0313, Until Wed03/13/25 at 0413, Routine [facility] morpHINE injection 4 mg morpHINE injection 4 mg 03-13 06:00: 00 03-13 05:21 :00 Yes 4mg 4 mg, Slow IV Push, ONCE, 1 dose, On Wed03/13/25 at 0100, Routine [facility] miSOPROStoL (CYTOTEC) tablet 25 mcg miSOPROStoL (CYTOTEC) tablet 25 mcg 03-12 22:00: 00 03-12 23:02 :00 Yes 25ug 25 mcg, Vaginal, ONCE, 1 dose, On Wed03/12/25 at 1700, Routine [facility] D5W-LR IV infusion 1,000 mL 03-12 19:23: 15 03-14 11:45 :12 No 1000mL at 1-75 mL/hr, IV Infusion, TITRATE, Starting on Wed03/12/25 at 1423, Until Wed03/14/25 at 0645, Routine [facility] PNV 67-iron ps-folate no.1-dha (VITAFOL ULTRA) 29 mg iron- 1 mg-200 mg Cap 01-10 00:00: 00 03-15 00:00 :00 No [id number] 09 1{tbl} Take 1 tablet by mouth in the morning for 180 days. [facility] foLIC acid 1 mg tablet 12-29 00:00: 00 03-15 00:00 :00 No [id number] 1mg Take 1 tablet by mouth in the morning for 210 days. [facility] ferrous sulfate 325 mg (65 mg iron) tablet 12-19 00:00: 00 03-15 00:00 :00 No [id number] 325mg Take 1 tablet by mouth in the morning and 1 tablet in the evening. [facility] ascorbic acid, vitamin C, 500 mg tablet 12-19 00:00: 00 03-15 00:00 :00 No [id number] 500mg Take 1 tablet by mouth in the morning and 1 tablet at noon and 1 tablet in the evening. [facility] ferrous sulfate (IRON) 325 mg (65 mg iron) tablet 12-14 09:30: 53 03-12 00:00 :00 No 325mg Take 1 tablet by mouth in the morning and 1 tablet in the evening. [facility] nitrofurant oin monohyd/m-c ryst (MACROBID ORAL) 12-14 09:16: 24 03-12 00:00 :00 No Take by mouth. [facility] multivitami n ( VITAMIN) tablet 12-14 00:00: 00 01-10 00:00 :00 No [id number] 09 1{tbl} Take 1 tablet by mouth in the morning. [facility] ferrous gluconate 324 mg (38 mg iron) tablet 18 00:00: 00 03-12 00:00 :00 No 324mg Take 1 tablet by mouth in the morning and 1 tablet in the evening. [facility] ketorolac (TORADOL) injection 15 mg 02-10 07:30: 00 02-10 07:18 :00 No 15mg 15 mg, Slow IV Push, ONCE, 1 dose, On Wed02/11/24 at 0230, KIRK [facility] methocarbam oL (ROBAXIN) tablet 1,000 mg 02-10 06:45: 00 02-10 07:09 :00 No 1000mg 1,000 mg, Oral, ONCE, 1 dose, On Wed02/11/24 at 0145, KIRK [facility] FOLIC ACID ORAL 03-28 15:26: 29 Yes Take by mouth. [facility] nitrofurant oin monohyd/m-c ryst (MACROBID ORAL) 03-28 15:26: 29 Yes Take by mouth. [facility] nitrofurant oin monohyd/m-c ryst (MACROBID ORAL) 03-28 10:26: 29 Yes Take by mouth. [facility] vit 33-iron-fol ic-dha (SELECT-OB + DHA) 29 mg iron-1 mg -250 mg combo pack 03-28 00:00: 00 Yes [id number] 1{packe t} Take 1 Packet by mouth daily. [facility] vit 33-iron-fol ic-dha (SELECT-OB + DHA) 29 mg iron-1 mg -250 mg combo pack 03-28 00:00: 00 01-10 00:00 :00 No [id number] 1{packe t} Take 1 Packet by mouth daily. [facility] No [facility] ferrous gluconate 324 mg (38 mg iron) tablet Take 1 tablet every day by oral route. ferrous gluconate 324 mg (38 mg iron) tablet Take 1 tablet every day by oral route. No 1 Q1D ferrous gluconate 324 mg (38 mg iron) tablet Take 1 tablet every day by oral route. [facility] Immunizations Ordered Immunization Name Filled Immunization Name Date Status Comments Source TDAP 2025-01-10 00:00:00 Completed [facility] DTAP 2005-12-24 00:00:00 Completed [facility] IPV 2005-12-24 00:00:00 Completed MMR 2005-12-24 00:00:00 Completed DTAP 2003-05-09 00:00:00 Completed Heamophilus Influenza B 2003-05-09 00:00:00 Completed Pneumococcal 7 Conjugate, PCV7 (Prevnar7) 2003-05-09 00:00:00 Completed Pneumococcal 7 Conjugate, PCV7 (Prevnar7) 2003-01-17 00:00:00 Completed Hep B, Unspecified Formulation 2002-11-07 00:00:00 Completed MMR 2002-11-07 00:00:00 Completed Varicella (varivax)(chicken pox) 2002-11-07 00:00:00 Completed DTAP 2002-09-26 00:00:00 Completed Heamophilus Influenza B 2002-09-26 00:00:00 Completed IPV 2002-09-26 00:00:00 Completed Hep B, Unspecified Formulation 2002-06-15 00:00:00 Completed Heamophilus Influenza B 2002-06-15 00:00:00 Completed IPV 2002-06-15 00:00:00 Completed DTAP 2002-06-15 00:00:00 Completed DTAP 2001 00:00:00 Completed Hep B, Unspecified Formulation 2001 00:00:00 Completed Heamophilus Influenza B 2001 00:00:00 Completed IPV 2001 00:00:00 Completed Vital Signs Vital Name Observation Time Observation Value Comments S ke Systolic blood pressure 2025-04-04 18:24:00 123 mm[Hg] [facility] Diastolic blood pressure 2025-04-04 18:24:00 79 mm[Hg] [facility] Heart rate 2025-04-04 18:24:00 105 [facility] 2025-04-04 18:24:00 35.61 Cristina [facility] Respiratory rate 2025-04-04 18:24:00 20 /min [facility] Body height 2025-04-04 18:24:00 160 cm [facility] Body weight 2025-04-04 18:24:00 109.799 kg [facility] BMI 2025-04-04 18:24:00 42.88 kg/m2 [facility] Systolic blood pressure 2025-03-21 18:00:00 138 mm[Hg] Manual BP [facility] Diastolic blood pressure 2025-03-21 18:00:00 72 mm[Hg] Manual BP [facility] Heart rate 2025-03-21 17:57:00 65 /min [facility] Body temperature 2025-03-21 17:57:00 36.67 Cristina [facility] Body weight 2025-03-21 17:57:00 113.581 kg [facility] BMI 2025-03-21 17:57:00 44.36 kg/m2 [facility] Systolic blood pressure 2025-03-15 12:59:00 103 mm[Hg] [facility] Diastolic blood pressure 2025-03-15 12:59:00 57 mm[Hg] [facility] Heart rate 2025-03-15 12:59:00 72 /min [facility] Body temperature 2025-03-15 12:59:00 37.22 Cristina [facility] Respiratory rate 2025-03-15 12:59:00 18 /min [facility] Oxygen saturation in Arterial blood by Pulse oximetry 2025-03-15 12:59:00 97 /min [facility] Body height 2025-03-12 20:56:00 160 cm [facility] Body weight 2025-03-12 20:56:00 123.832 kg [facility] BMI 2025-03-12 20:56:00 48.36 kg/m2 [facility] Systolic blood pressure 2025-03-06 16:01:00 120 mm[Hg] [facility] Diastolic blood pressure 2025-03-06 16:01:00 78 mm[Hg] [facility] Heart rate 2025-03-06 16:01:00 80 /[facility] 2025-03-06 16:01:00 36.11 Cristina [facility] Respiratory rate 2025-03-06 16:01:00 18 /min [facility] Body height 2025-03-06 16:01:00 160 [facility] 2025-03-06 16:01:00 122.953 kg [facility] BMI 2025-03-06 16:01:00 48.02 kg/m2 [facility] Systolic blood pressure 2025-02-27 15:56:00 133 mm[Hg] [facility] Diastolic blood pressure 2025-02-27 15:56:00 88 mm[Hg] [facility] Heart rate 2025-02-27 15:56:00 101 /min [facility] Body temperature 2025-02-27 15:56:00 36.56 Cristina [facility] Respiratory rate 2025-02-27 15:56:00 18 /min [facility] Body height 2025-02-27 15:56:00 160 cm [facility] Body weight 2025-02-27 15:56:00 123.548 kg [facility] BMI 2025-02-27 15:56:00 48.25 kg/m2 [facility] Systolic blood pressure 2025-02-21 15:03:00 121 mm[Hg] [facility] Diastolic blood pressure 2025-02-21 15:03:00 74 mm[Hg] [facility] Heart rate 2025-02-21 15:03:00 96 /min [facility] Body temperature 2025-02-21 15:03:00 36.39 Cristina [facility] Respiratory rate 2025-02-21 15:03:00 18 /min [facility] Body height 2025-02-21 15:03:00 160 cm [facility] weight 2025-02-21 15:03:00 121.677 kg [facility] BMI 2025-02-21 15:03:00 47.52 kg/m2 [facility] Systolic blood pressure 2025-02-13 23:00:00 128 mm[Hg] [facility] Diastolic blood pressure 2025-02-13 23:00:00 68 mm[Hg] [facility] Heart rate 2025-02-13 23:00:00 96 /min [facility] Oxygen saturation in Arterial blood by Pulse oximetry 2025-02-13 23:00:00 99 /min [facility] Respiratory rate 2025-02-13 22:30:00 18 /min [facility] Body temperature 2025-02-13 20:42:00 37 Cristina [facility] Body height 2025-02-13 20:42:00 160 cm [facility] Body weight 2025-02-13 20:42:00 119.432 kg [facility] BMI 2025-02-13 20:42:00 46.64 kg/m2 [facility] Systolic blood pressure 2025-02-13 16:10:00 128 mm[Hg] [facility] Diastolic blood pressure 2025-02-13 16:10:00 80 mm[Hg] [facility] Heart rate 2025-02-13 16:10:00 99 /min [facility] Body temperature 2025-02-13 16:10:00 36.56 Cristina [facility] Respiratory rate 2025-02-13 16:10:00 18 /min [facility] Body height 2025-02-13 16:10:00 160 cm [facility] Body weight 2025-02-13 16:10:00 119.013 kg [facility] BMI 2025-02-13 16:10:00 46.48 kg/m2 [facility] Systolic blood pressure 2025-02-07 14:38:00 120 mm[Hg] [facility] Diastolic blood pressure 2025-02-07 14:38:00 78 mm[Hg] [facility] Heart rate 2025-02-07 14:38:00 101 /min [facility] Body temperature 2025-02-07 14:38:00 36.22 Cristina [facility] Respiratory rate 2025-02-07 14:38:00 18 /min [facility] Body height 2025-02-07 14:38:00 160 cm [facility] Body weight 2025-02-07 14:38:00 117.567 kg [facility] BMI 2025-02-07 14:38:00 45.91 kg/m2 [facility] Systolic blood pressure 2025-01-24 18:33:00 115 mm[Hg] [facility] Diastolic blood pressure 2025-01-24 18:33:00 68 mm[Hg] [facility] Heart rate 2025-01-24 18:33:00 91 /min [facility] Body temperature 2025-01-24 18:33:00 35.67 Cristina [facility] Respiratory rate 2025-01-24 18:33:00 18 /min [facility] Body height 2025-01-24 18:33:00 160 cm [facility] Body weight 2025-01-24 18:33:00 114.851 kg [facility] BMI 2025-01-24 18:33:00 44.85 kg/m2 [facility] Systolic blood pressure 2025-01-19 03:00:00 126 mm[Hg] [facility] Diastolic blood pressure 2025-01-19 03:00:00 64 mm[Hg] [facility] Heart rate 2025-01-19 03:00:00 93 /min [facility] Oxygen saturation in Arterial blood by Pulse oximetry 2025-01-19 03:00:00 99 /min [facility] Body temperature 2025-01-19 01:50:00 36.94 Cristina [facility] Respiratory rate 2025-01-19 01:50:00 18 /min [facility] Body height 2025-01-19 01:50:00 160 cm [facility] Body weight 2025-01-19 01:50:00 114.488 kg [facility] BMI 2025-01-19 01:50:00 44.71 kg/m2 [facility] Systolic blood pressure 2025-01-10 18:56:00 129 mm[Hg] [facility] Diastolic blood pressure 2025-01-10 18:56:00 70 mm[Hg] [facility] Heart rate 2025-01-10 18:56:00 94 /min [facility] Body temperature 2025-01-10 18:56:00 36.11 Cristina [facility] Respiratory rate 2025-01-10 18:56:00 18 /min [facility] Body weight 2025-01-10 18:56:00 112.674 kg [facility] BMI 2025-01-10 18:56:00 44.00 kg/m2 [facility] Systolic blood pressure 2024-12-28 20:19:00 120 mm[Hg] [facility] Diastolic blood pressure 2024-12-28 20:19:00 74 mm[Hg] [facility] Heart rate 2024-12-28 20:19:00 98 /min [facility] Body temperature 2024-12-28 20:19:00 36.72 Cristina [facility] Respiratory rate 2024-12-28 20:19:00 17 /min [facility] Body weight 2024-12-28 20:19:00 111.449 kg [facility] BMI 2024-12-28 20:19:00 43.52 kg/m2 [facility] Systolic blood pressure 2024-12-17 06:00:00 123 mm[Hg] [facility] Diastolic blood pressure 2024-12-17 06:00:00 66 mm[Hg] [facility] Heart rate 2024-12-17 06:00:00 99 /min [facility] Oxygen saturation in Arterial blood by Pulse oximetry 2024-12-17 06:00:00 98 /min [facility] Body temperature 2024-12-17 04:10:00 36.89 Cristina [facility] Respiratory rate 2024-12-17 04:10:00 20 /min [facility] Body height 2024-12-17 04:10:00 160 cm [facility] Body weight 2024-12-17 04:10:00 109.997 kg [facility] BMI 2024-12-17 04:10:00 42.96 kg/m2 [facility] Systolic blood pressure 2024-12-14 14:13:00 117 mm[Hg] [facility] Diastolic blood pressure 2024-12-14 14:13:00 71 mm[Hg] [facility] Heart rate 2024-12-14 14:13:00 101 /min [facility] Body temperature 2024-12-14 14:13:00 36.39 Cristina [facility] Body height 2024-12-14 14:13:00 162.6 cm [facility] Body weight 2024-12-14 14:13:00 109.498 kg [facility] BMI 2024-12-14 14:13:00 41.44 kg/m2 [facility] Oxygen saturation in Arterial blood by Pulse oximetry 2024-12-14 14:13:00 98 /min [facility] BMI (Body Mass Index) 2024-12-04 00:00:00 40.9 kg/m2 [facility] Height 2024-12-04 00:00:00 64 [in_i] [facility] Body Weight 2024-12-04 00:00:00 238.5 [lb_av] [facility] BP Systolic 2024-12-04 00:00:00 120 mm[Hg] [facility] BP Diastolic 2024-12-04 00:00:00 60 mm[Hg] [facility] BP Systolic 2024-11-13 00:00:00 116 mm[Hg] [facility] Body Weight 2024-11-13 00:00:00 235 [lb_av] [facility] Height 2024-11-13 00:00:00 64 [in_i] [facility] BMI (Body Mass Index) 2024-11-13 00:00:00 40.3 kg/m2 [facility] BP Diastolic 2024-11-13 00:00:00 63 mm[Hg] [facility] BP Systolic 2024-10-05 00:00:00 115 mm[Hg] [facility] Height 2024-10-05 00:00:00 64 [in_i] [facility] BMI (Body Mass Index) 2024-10-05 00:00:00 39.3 kg/m2 [facility] Body Weight 2024-10-05 00:00:00 229.2 [lb_av] [facility] BP Diastolic 2024-10-05 00:00:00 73 mm[Hg] [facility] Systolic blood pressure 2024-02-11 07:23:00 125 mm[Hg] [facility] Diastolic blood pressure 2024-02-11 07:23:00 78 mm[Hg] [facility] Heart rate 2024-02-11 07:23:00 75 /min [facility] Body temperature 2024-02-11 07:23:00 36.06 Cristina [facility] Respiratory rate 2024-02-11 07:23:00 18 /min [facility] Oxygen saturation in Arterial blood by Pulse oximetry 2024-02-11 07:23:00 100 /min [facility] Body height 2024-02-11 05:11:00 162.6 cm [facility] Body weight 2024-02-11 05:11:00 99.791 kg [facility] BMI 2024-02-11 05:11:00 37.76 kg/m2 [facility] Systolic blood pressure 2020-06-06 14:40:00 115 mm[Hg] [facility] Diastolic blood pressure 2020-06-06 14:40:00 71 mm[Hg] [facility] Heart rate 2020-06-06 14:40:00 84 /min [facility] Body temperature 2020-06-06 14:40:00 36.89 Cristina [facility] Respiratory rate 2020-06-06 14:40:00 16 /min [facility] Body height 2020-06-06 14:40:00 162.6 cm [facility] Body weight 2020-06-06 14:40:00 101.237 kg [facility] BMI 2020-06-06 14:40:00 38.31 kg/m2 [facility] Systolic blood pressure 2020-06-06 14:40:00 115 mm[Hg] [facility] Diastolic blood pressure 2020-06-06 14:40:00 71 mm[Hg] [facility] Heart rate 2020-06-06 14:40:00 84 /min [facility] Body temperature 2020-06-06 14:40:00 36.89 Cristina [facility] Respiratory rate 2020-06-06 14:40:00 16 /min [facility] Body height 2020-06-06 14:40:00 162.6 cm [facility] Body weight 2020-06-06 14:40:00 101.237 kg [facility] BMI 2020-06-06 14:40:00 38.31 kg/m2 [facility] Systolic blood pressure 2020-05-10 19:10:00 116 mm[Hg] [facility] Diastolic blood pressure 2020-05-10 19:10:00 71 mm[Hg] [facility] Heart rate 2020-05-10 19:10:00 91 /min [facility] 2020-05-10 19:10:00 36.78 Cristina [facility] Respiratory rate 2020-05-10 19:10:00 16 /min [facility] Body height 2020-05-10 19:10:00 162.6 cm [facility] Body weight 2020-05-10 19:10:00 98.022 kg [facility] BMI 2020-05-10 19:10:00 37.09 kg/m2 [facility] Systolic blood pressure 2020-05-10 19:10:00 116 mm[Hg] [facility] Diastolic blood pressure 2020-05-10 19:10:00 71 mm[Hg] [facility] Heart rate 2020-05-10 19:10:00 91 /min [facility] Body temperature 2020-05-10 19:10:00 36.78 Cristina [facility] Respiratory rate 2020-05-10 19:10:00 16 /min [facility] Body height 2020-05-10 19:10:00 162.6 cm [facility] Body weight 2020-05-10 19:10:00 98.022 kg [facility] BMI 2020-05-10 19:10:00 37.09 kg/m2 [facility] Systolic blood pressure 2020-04-14 18:30:00 134 mm[Hg] [facility] Diastolic blood pressure 2020-04-14 18:30:00 69 mm[Hg] [facility] Heart rate 2020-04-14 18:30:00 81 /min [facility] Body temperature 2020-04-14 18:30:00 37.28 Cristina [facility] Respiratory rate 2020-04-14 18:30:00 16 /min [facility] Body height 2020-04-14 18:30:00 162.6 cm [facility] Body weight 2020-04-14 18:30:00 92.987 kg [facility] BMI 2020-04-14 18:30:00 35.19 kg/m2 [facility] Oxygen saturation in Arterial blood by Pulse oximetry 2020-04-14 18:30:00 99 /min [facility] Systolic blood pressure 2020-04-12 15:45:00 110 mm[Hg] [facility] Diastolic blood pressure 2020-04-12 15:45:00 60 mm[Hg] [facility] Heart rate 2020-04-12 15:45:00 106 /min [facility] Body temperature 2020-04-12 15:45:00 36.78 Cristina [facility] Respiratory rate 2020-04-12 15:45:00 18 /min [facility] Body height 2020-04-12 15:45:00 162.6 cm [facility] Body weight 2020-04-12 15:45:00 93.26 kg [facility] BMI 2020-04-12 15:45:00 35.29 kg/m2 [facility] Systolic blood pressure 2020-04-10 18:28:00 111 mm[Hg] [place] [facility] Diastolic blood pressure 2020-04-10 18:28:00 68 mm[Hg] [place] [facility] Heart rate 2020-04-10 18:28:00 81 /min [facility] Body temperature 2020-04-10 18:28:00 36.56 Cristina [facility] Respiratory rate 2020-04-10 18:28:00 16 /min [facility] Body height 2020-04-10 18:28:00 162.6 cm [facility] Body weight 2020-04-10 18:28:00 93.611 kg [facility] BMI 2020-04-10 18:28:00 35.42 kg/m2 [facility] Systolic blood pressure 2020-03-28 15:05:00 116 mm[Hg] [facility] Diastolic blood pressure 2020-03-28 15:05:00 63 mm[Hg] [facility] Heart rate 2020-03-28 15:05:00 77 /min [facility] Body temperature 2020-03-28 15:05:00 37.44 Cristina [facility] Respiratory rate 2020-03-28 15:05:00 16 /min [facility] Body height 2020-03-28 15:05:00 162.6 cm [facility] Body weight 2020-03-28 15:05:00 89.676 kg [facility] BMI 2020-03-28 15:05:00 33.94 kg/m2 [facility] Heart Rate 2024-08-01 10:23:00 82.00 /min Linsey en F Zack Respiratory Rate 2024-08-01 10:23:00 Frank F Zack BP Systolic 2024-08-01 10:23:00 106 mm[Hg] Step hen F Zack BP Diastolic 2024-08-01 10:23:00 66 mm[Hg] Frantz phen F Zack Weight Measured 2024-08-01 10:23:00 227.00 pounds Frank F Zack Height Measured 2024-08-01 10:23:00 64.00 inches Frank F Zack Body Temperature 2024-08-01 10:23:00 97.70 degrees Frank F Zack BP Systolic 2024-07-26 15:15:00 130 mm[Hg] Mir Dixon BP Diastolic 2024-07-26 15:15:00 60 mm[Hg] Frantz Dixon Weight Measured 2024-07-26 15:15:00 229.40 pounds Frank Dixon Height Measured 2024-07-26 15:15:00 64.00 inches Frank Dixon Body Temperature 2024-07-26 15:15:00 98.30 degrees Frank Dixon Heart Rate 2024-07-26 15:15:00 88.00 /min Linsey Dixon Respiratory Rate 2024-07-26 15:15:00 16.00 /min Frank Dixon Procedures Procedure Date / Time Performed Performing Clinician Source CBC WITH DIFF 2025-03-15 09:31:00 Sergio Cuadra [facility] VENOUS CORD GAS 2025-03-14 08:50:00 Josephine Mora [facility] CENTRAL NEURAXIAL BLOCK 2025-03-13 09:06:00 Davidson Murphy [facility] LACTATE DEHYDROGENASE 2025-03-12 20:37:00 Francheska Mora [facility] URINALYSIS 2025-03-12 20:37:00 Abby [facility] PROTEIN CREAT RATIO URINE RANDOM 2025-03-12 20:37:00 Abby [facility] SGOT (ASPARTATE AMINO TRANSFER) 2025-03-12 19:32:00 Abby [facility] CREATININE 2025-03-12 19:32:00 Abby [facility] ALANINE AMINO TRANSFERASE(SGPT 2025-03-12 19:32:00 Abby [facility] URIC ACID 2025-03-12 19:32:00 Josephine Mora [facility] CBC WITH DIFF 2025-03-12 19:32:00 Josephine Mora [facility] HEPATITIS B SURFACE ANTIGEN 2025-03-12 19:32:00 Abby [facility] HB ABO GROUPING 2025-03-12 19:32:00 Zeinapebbles Josephine [facility] RHO (D) IMMUNE GLOBULIN 2025-03-12 19:32:00 Melissa Lester [facility] SYPHILIS IGG/IGM 2025-03-12 19:32:00 Abby [facility]STER ULTRASOUND 2025-03-06 14:13:00 Bipin Moran [facility] POCT URINALYSIS 2025-02-27 00:00:00 Bipin Moran [facility] POCT URINALYSIS 2025-02-21 00:00:00 Bipin Moran [facility] URINALYSIS 2025-02-13 21:04:00 Lisset Matias [facility] NON-STRESS TEST 2025-02-13 18:07:33 Ronald Moran [facility] POCT URINALYSIS 2025-02-13 00:00:00 Bipin Moran [facility] POCT URINALYSIS 2025-02-07 00:00:00 Bipin Moran [facility] SECOND AND THIRD TRIMESTER ULTRASOUND 2025-01-30 19:19:00 Bipin Moran [facility] POCT URINALYSIS 2025-01-24 18:36:00 Bipin Moran [facility] URINALYSIS 2025-01-19 02:05:00 Adum, Smiley Zelaya [facility] ADC CLC OR LCC ONLY - WET PREP 2025-01-19 02:05:00 Adum, Smiley Zelaya [facility] TDAP VACCINE, >11 YRS, IM 2025-01-10 19:42:05 Bipin Moran [facility] POCT URINALYSIS 2025-01-10 00:00:00 Bipin Moran [facility] SECOND AND THIRD TRIMESTER ULTRASOUND 2024-12-29 19:09:00 Bipin Moran [facility] SECOND AND THIRD TRIMESTER ULTRASOUND 2024-12-29 18:57:00 Bipin Moran [facility] NIPT - NON-INVASIVE TEST RESULTS 2024-12-28 20:02:46 Doctor Unassigned, [place] [facility] POCT URINALYSIS 2024-12-28 00:00:00 Bipin Moran [facility] NIPT - NON-INVASIVE TEST RESULTS 2024-12-21 18:15:54 Doctor Unassigned, [place] [facility] URINALYSIS 2024-12-17 05:05:00 Na Bagley [facility] ADC CLC OR LCC ONLY - WET PREP 2024-12-17 05:05:00 Na Bagley [facility] GLUCOSE 1 HOUR POST PRANDIAL 2024-12-14 15:42:00 Bipin Moran [facility] CBC WITH DIFF 2024-12-14 15:42:00 Bipin Moran [facility] RUBELLA SCREEN IGG 2024-12-14 15:42:00 Lm Moran [facility] VZV ANTIBODY SCREEN 2024-12-14 15:42:00 Shawn Moran [facility] HEPATITIS B SURFACE ANTIGEN 2024-12-14 15:42:00 Bipin Moran [facility] HCV ANTIBODY 2024-12-14 15:42:00 Bipin Moran [facility] HB ABO GROUPING 2024-12-14 15:42:00 Bipin Moran [facility] HIV 1/2 AG-AB WITH REFLEX 2024-12-14 15:42:00 Bipin Moran [facility] SYPHILIS IGG/IGM 2024-12-14 15:42:00 Morena Moran [facility] URINE CULTURE 2024-12-14 15:42:00 Bipin Moran [facility] GC & CHLAMYDIA AMPLIFIED ASSAY 2024-12-14 15:42:00 Bipin Moran [facility] POCT TEST 2024-12-14 14:04:00 Shawn Moran [facility] POCT URINALYSIS W/O SPECIFIC GRAVITY 2024-12-14 14:04:00 Bipin Moran [facility] US, obstetric, limited 2024-12-04 00:00:00 [facility] US, obstetric, limited 2024-10-05 00:00:00 [facility] ULTRASOUND, UTERUS REAL TIME WITH IMAGE DOC, AND MATERNAL EVAL PLUS DETAILED ANATOMIC EXAMINATION, TRANSABDOMINAL APPROACH; SINGLE OR FIRST GESTATION 2024-10-05 00:00:00 [facility] POCT TEST 2024-02-11 07:06:00 Nona Hightower [facility] CT ABDOMEN PELVIS WO CONTRAST 2024-02-11 05:58:41 Dimitris Hightower [facility] LIPASE 2024-02-11 05:45:00 [facility] COMP. METABOLIC PANEL (70446) 2024-02-11 05:45[facility]00 [facility] CBC WITH DIFF 2024-02-11 05:45:00 Campbell [facility] POCT URINALYSIS W/O SPECIFIC GRAVITY 2020-05-10 20:53:00 Bipin Moran [facility] POCT TEST 2020-05-10 20:20:00 Shawn Moran [facility] URINALYSIS 2020-04-14 19:46:00 Gaetano May [facility] NOTICE OF PRIVACY PRACTICES 2020-04-14 18:10:49 Doctor Unassigned, [place] [facility] EXTERNAL PROVIDER RECORDS 2020-04-10 05:01:00 Do ctor Unassigned, [place] [facility] ASSIGNMENT OF BENEFITS 2020-03-28 14:08:23 Docto r Unassigned, [place] [facility] POCT TEST 2020-03-28 00:00:00 Les Ellsworth [facility] POCT URINALYSIS W/O SPECIFIC GRAVITY 2020-03-28 00:00:00 Shadia Ellsworth [facility] Encounters Start Date/Time End Date/Time Encounter Type Admission Type Attending Clinicians Care Facility Care Department Encounter ID Source 2025-02-13 18:32:08 Outpatient X [facility] [id number] [facility] 2025-01-18 22:45:57 Outpatient X [facility] [id number] [facility] 2024-11-02 09:00:00 Inpatient EZEKIEL GIBBONS [facility] [id number] [facility] 2021-07-18 08:50:43 Emergency [facility] [id number] [facility] 2025-04-26 12:30:00 2025-04-26 12:30:00 Outpatient ROMAN BARNETT [facility] [id number] [facility] 2025-03-12 00:00:00 2025-04-14 18:23:03 Patient Secure Ms Doctor Unassigned, [place] Doctor Unassigned, [place] [facility] [id number] [id number] [id number] [id number] [facility] 2025-04-04 00:00:00 2025-04-04 16:23:41 Patient Secure Msg Doctor Unassigned, [place] Doctor Unassigned, [place] [facility] [employer] MAT[facility]NAL & CHILD [facility] [id number] 350.1.13.10 [id number] [id number] [facility] 2025-04-04 14:00:00 2025-04-04 14:54:09 Routine Visit KOSTA ORNELAS [facility] CHILD [facility] [id number] [id number] [id number] [id number] [facility] 2025-03-21 13:00:00 2025-03-21 13:11:25 Nurse Visit KOSTA ORNELAS [facility] [employer] MATERNAL & CHILD [facility] [id number] [id number] [id number] [id number] [facility] 2025-02-11 00:00:00 2025-03-17 18:27:26 Patient Secure Msg Doctor Unassigned, [place] Doctor Unassigned, [place] [facility] ([facility]) [id number] [id number] [id number] [id number] [facility] 2025-03-12 13:26:00 2025-03-15 14:12:00 Hospital Encounter P CRISTIANO, ELIZABETH QUINONEZ, ELIZABETH [facility] [id number] [facility] 2025-03-13 03:30:00 2025-03-14 05:05:00 Anesthesia Event Parth Novak Jake [facility] ([facility] [id number] 350.1.13.10 4.2.7.2.686 [id number] [facility] 2025-03-06 10:45:00 2025-03-06 11:28:09 Routine Visit R Bipin Moran [facility] & CHILD [facility] [id number] [id number] [id number] [id number] [facility] 2025-03-06 09:30:00 2025-03-06 10:11:11 Reinforcer Visit R SAL ABDUL KARIN [facility] [employer] MATERNAL & CHILD [facility] [id number] 350.1.13.10 4.2.7.2.686 [id number] [facility] 2025-02-27 11:15:00 2025-02-27 11:50:32 Routine Visit R Bipin Moran [facility] & CHILD [facility] [id number] 350.1.13.10 4.2.7.2.686 [id number] [facility] 2025-02-21 10:00:00 2025-02-21 10:49:34 Routine Visit R Bipin Moran [facility] CHILD [facility] [id number] 350.1.13.10 4.2.7.2.686 [id number] [facility] 2025-02-13 15:20:00 2025-02-13 18:31:00 Hospital Encounter X ALONDRA PISANO [facility] [id number] [facility] 2025-02-13 00:00:00 2025-02-13 12:31:06 Letter (Out) Bipin Moran [facility] [id number] 350.1.13.10 4.2.7.2.686 [id number] [facility] 2025-02-13 11:00:00 2025-02-13 12:27:38 Routine Visit R Bipin [place] [facility] CHILD [facility] [id number] 350.1.13.10 4.2.7.2.686 [id number] [facility] 2025-02-13 10:45:00 2025-02-13 10:45:00 Outpatient R BIPIN MORAN [facility] [id number] [facility] 2025-02-13 00:00:00 2025-02-13 09:54:33 Telephone Bipin Moran [facility] [id number] 350.1.13.10 [id number] [id number] [facility] 2025-02-07 09:45:00 2025-02-07 10:37:04 Routine Visit R Bipin Moran [facility] CHILD [facility] 1.2.840.114 350.1.13.10 4.2.7.2.686 [id number] [facility] 2024-12-30 00:00:00 2025-02-03 18:23:29 Patient Secure Msg Doctor Unassigned, [place] Doctor Unassigned, [place] [facility] 1.2.840.114 350.1.13.10 4.2.7.2.686 [id number] [facility] 2025-02-01 00:00:00 2025-02-01 16:27:10 Abstract Bipin Moran [facility] CHILD [facility] 1.2840.114 350.1.13.10 4.2.7.2.686 [id number] [facility] 2025-01-30 13:45:00 2025-01-30 14:58:13 Reinforcer Visit R Jcarlos Wynne Sangeeta [facility] CHILD [facility] 1.2840.114 350.1.13.10 4.2.7.2.686 [id number] [facility] 2025-01-30 13:45:00 2025-01-30 13:45:00 Outpatient R BRYN SUBRAMANIAN SANGEETA JAIN, SANGEETA [facility] [id number] [facility] 2025-01-24 13:30:00 2025-01-24 14:04:18 Outpatient R BIPIN MORAN [facility] [id number] [facility] 2025-01-24 13:30:00 2025-01-24 14:04:18 Routine Visit Bipin Moran [facility] 1..114 350.1.13.10 4.2.7.2.686 [id number] [facility] 2024-12-18 00:00:00 2025-01-20 18:18:46 Patient Secure Msg Doctor Unassigned, [place] Doctor Unassigned, [place] [facility] ([facility] 1..114 350.1.13.10 4.2.7.2.686 [id number] [facility] 2025-01-18 20:38:00 2025-01-18 22:33:00 Outpatient X SMILEY CASTILLO [facility] [id number] [facility] 2025-01-18 20:38:00 2025-01-18 22:33:00 Emergency X ADUMSMILEY [facility] [id number] [facility] 2025-01-10 13:45:00 2025-01-10 14:46:22 Outpatient R JENELLE RUDOLPH [facility] [id number] [facility] 2025-01-10 13:45:00 2025-01-10 14:46:22 Routine Visit Risk, Ang-Rmchp-N p/High Jenelle Rudolph Risk, Ang-Rmchp-N p/High [facility] CHILD [facility] ..114 350.1.13.10 4.2.7.2.686 [id number] [facility] 2025-01-02 00:00:00 2025-01-02 15:01:46 Abstract Bipin Moran [facility]ILD [facility] 1..114 350.1.13.10 4.2.7.2.686 [id number] [facility] 2024-12-29 13:00:00 2024-12-29 16:55:11 Outpatient LANDON REAL SHANNON [facility] [id number] [facility] 2024-12-29 13:00:00 2024-12-29 16:55:11 Reinforcer Visit 1, [facility] Room Landon Chapa [facility] [employer] [facility]NAL & CHILD [facility] 1.2.840.114 350.1.13.10 4.2.7.2.686 [id number] [facility] 2024-12-28 00:00:00 2024-12-29 02:04:27 Orders Only Doctor Unassigned, [place] Doctor Unassigned, [place] [facility] ([facility]) 1.20.114 350.1.13.10 4.2.7.2.686 [id number] [facility] 2024-12-28 14:15:00 2024-12-28 16:11:15 Outpatient JENELLE BAXTER [facility] [id number] [facility] 2024-12-28 14:15:00 2024-12-28 16:11:15 Office Visit R JENELLE RUDOLPH [facility] CHILD [facility] 1.20.114 350.1.13.10 4.2.7.2.686 [id number] [facility] 2024-12-22 00:00:00 2024-12-22 15:37:46 Telephone Bipin Moran [facility] CHILD [facility] 1.2840.114 350.1.13.10 4.2.7.2.686 [id number] [facility] 2024-12-21 00:00:00 2024-12-22 02:05:03 Orders Only Doctor Unassigned, [place] Doctor Unassigned, [place] [facility] 1.2840.114 350.1.13.10 4.2.7.2.686 [id number] [facility] 2024-12-19 00:00:00 2024-12-19 12:58:15 Telephone Bipin Moran [facility] 1..840.114 350.1.13.10 4.2.7.2.686 [id number] [facility] 2024-12-16 23:16:00 2024-12-17 01:17:00 Outpatient X CORNEJO-REENA S, NA CORNEJO-REENA S, NA [facility] [id number] [facility] 2024-12-16 23:16:00 2024-12-17 01:17:00 Emergency X CORNEJO-REENA S, NA CORNEJO-REENA S, NA [facility] [id number] [facility] 2024-12-14 09:45:00 2024-12-14 10:47:07 Outpatient R BIPIN MORAN [facility] [id number] [facility] 2024-12-14 09:45:00 2024-12-14 10:47:07 Initial Visit Bipin Moran [facility] 1.2.840.114 350.1.13.10 4.2.7.2.686 [id number] [facility] 2024-12-04 00:00:00 2024-12-04 00:00:00 Chapis Metzger MD: [address], [address], [place] [address] , Ph. [phone] [facility] [id number] [facility] 2024-11-13 14:02:00 2024-11-13 14:02:00 Outpatient ROXANN GIBBONS[facility]AN [facility] [id number] [facility] 2024-11-13 00:00:00 2024-11-13 00:00:00 SARAH LeyvaP-BC: [address], [place] [address] , Ph. [phone] [facility] [id number] 0224 [facility] 2024-10-05 13:06:00 2024-10-05 13:06:00 Outpatient EZEKIEL GIBBONS [facility] [id number] [facility] 2024-10-05 00:00:00 2024-10-05 00:00:00 SARAH LeyvaP-BC: [address], [address], [place] [address] , Ph. [phone] [facility] [phone] 0116 [facility] 2024-08-01 11:05:05 2024-08-01 11:05:05 Outpatient SFA [facility] [id number] Frank Dixon 2024-08-01 00:00:00 2024-08-01 00:00:00 Outpatient Visit [facility] [id number] Frank Dixon 2024-07-28 09:33:30 2024-07-28 09:33:30 Outpatient SFA [facility] [id number] Frank Dixon 2024-07-26 00:00:00 2024-07-26 00:00:00 Outpatient Visit [facility] [id number] Frank Dixon 2024-02-11 00:14:00 2024-02-11 02:36:00 Emergency [facility] [id number] [facility] 2024-02-11 00:14:00 2024-02-11 02:36:00 Emergency Dimitris Hightower [facility] 1.2.840.114 350.1.13.10 4.2.7.2.686 [id number] [facility] 2021-03-28 09:00:00 2021-03-28 09:00:00 Outpatient Carlo BIPIN MORAN [facility] [id number] [facility] 2020-06-06 10:00:00 2020-06-06 10:00:00 Outpatient Carlo BIPIN MORAN [facility] [id number] [facility] 2020-06-06 09:09:10 2020-06-06 09:49:05 [facility] Bipin Dominga [facility] 1.2.840.114 350.1.13.10 4.2.7.2.686 [id number] [facility] 2020-06-06 09:09:10 2020-06-06 09:49:05 [facility] 1.2.840.114 350.1.13.10 4.2.7.2.686 [id number] 2020-05-24 15:15:00 2020-05-24 15:15:00 Outpatient Carlo BIPIN MORAN [facility] [id number] [facility] 2020-05-10 13:34:58 2020-05-10 14:25:20 Office Visit Bipin Moran [facility]ILD [facility] 1.2.840.114 350.1.13.10 4.2.7.2.686 [id number] [facility] 2020-05-10 13:34:58 2020-05-10 14:25:20 Office Visit Dean Bipin C [facility] 1.2.840.114 350.1.13.10 4.2.7.2.686 [id number] 2020-05-10 13:45:00 2020-05-10 13:45:00 Outpatient R BIPIN MORAN [facility] [id number] [facility] 2020-05-06 13:00:00 2020-05-06 13:00:00 Outpatient R MARY ELLEN FERNANDEZ [facility] [id number] [facility] 2020-04-29 10:30:00 2020-04-29 10:30:00 Outpatient R [facility] [id number] [facility] 2020-04-29 09:54:54 2020-04-29 10:09:54 Telemedici ne Visit Trimester, [facility] Res-1st Rebecca Flowers [facility] 1.2.840.114 350.1.13.10 4.2.7.2.686 [id number] [facility] 2020-04-14 13:32:33 2020-04-14 15:44:00 Emergency Gaetano May [facility] 1.2.840.114 350.1.13.10 4.2.7.2.686 [id number] [facility] 2020-04-14 00:00:00 2020-04-14 00:00:00 Nurse Triage [facility] 1.2.840.114 350.1.13.10 4.2.7.2.686 [id number] [facility] 2020-04-12 10:21:31 2020-04-12 11:24:13 Routine Visit Trimester, [facility] Res-1st Edwin Carter [facility] 1.2.840.114 350.1.13.10 4.2.7.2.686 [id number] [facility] 2020-04-12 10:45:00 2020-04-12 10:45:00 Outpatient R [facility] [id number] [facility] 2020-04-11 08:01:59 2020-04-11 09:01:59 Reinforcer Visit Ultrasound, Jcarlos Almeidautrouveli Jada winston [facility] [employer] MATERNAL & CHILD [facility] 1.2.840.114 350.1.13.10 4.2.7.2.686 [id number] [facility] 2020-04-11 08:00:00 2020-04-11 08:00:00 Outpatient P [facility] [id number] [facility] 2020-04-11 00:00:00 2020-04-11 00:00:00 Telephone Shadia Ellsworth [facility] [employer] [facility]ERNAL & CHILD [facility] 1.2.840.114 350.1.13.10 4.2.7.2.686 [id number] [facility] 2020-04-11 00:00:00 2020-04-11 00:00:00 Abstract Shadia Ellsworth [facility] 1.2.840.114 350.1.13.10 4.2.7.2.686 [id number] [facility] 2020-04-10 13:03:05 2020-04-10 13:55:11 Routine Visit Shadia Ellsworth [facility] 1.2.840.114 350.1.13.10 4.2.7.2.686 [id number] [facility] 2020-04-10 13:00:00 2020-04-10 13:00:00 Outpatient R SHADIA ELLSWORTH [facility] [id number] [facility] 2020-04-10 00:00:00 2020-04-10 00:00:00 Orders Only Doctor Unassigned, [place] [facility] 1.2.840.114 350.1.13.10 4.2.7.2.686 [id number] [facility] 2020-03-28 09:24:44 2020-03-28 10:59:01 Initial Visit Shadia Ellsworth [facility] [employer] MATERNAL & CHILD [facility] 1.2.840.114 350.1.13.10 4.2.7.2.686 [id number] [facility] 2020-03-28 09:45:00 2020-03-28 09:45:00 Outpatient R SHADIA ELLSWORTH [facility] [id number] [facility] 2020-03-28 00:00:00 2020-03-28 00:00:00 Orders Only Doctor Unassigned, [place] [facility] 1.2.840.114 350.1.13.10 4.2.7.2.686 [id number] [facility] Results Test Description Test Time Test Comments Results Result Co mments Source [facility] [id number] 09:02:44* Test Item Value Reference Range Interpretation Comme [facility] VENOUS BASE EXCESS, CORD (te st code = 4750424535) -3.2 mEq/L VENOUS PH, CORD (test code = 0883105166) 7.33 7.25-7.45 VENOUS PC02, CORD (test code = 1280906385) 45 27-49 VENOUS PO2, CORD (test code = 9974411811) 33 17-41 VENOUS BICARBONATE, CORD (te st code = 7505414232) 23 12-29 [facility] [id number] 09:00:45* Test Item Value Reference Range Interpretation Comme nts BASE EXCESS, CORD (test code = 4708250939) -6.9 mEq/L AC PH, CORD (test code = 5511096470) 7.22 7.18-7.38 PC02, CORD (test code = 7001593128) 54 32-66 PO2, CORD (test code = 7245622653) 19 10-30 BICARBONATE, CORD (test code = 3021518788) 22 17-27 [facility]GAL[facility] ONLY - SYPHILIS IGG/[id number] 14:53:31* Test Item Value Reference Range Interpretation Comme [facility] Syphilis IgG/IgM (test code = 02302-4) Nonreactive Nonreactive Syphilis Serology Interpretation (test code = 46649-1) No serologic evidence of syphilis. If recent exposure is suspected, retest in 2 to 4 weeks. MARIEL (test code = MARIEL) ? [facility] [id number] 09:06:00 Renato Murphy MD ? ? 03/13/2025 ?4:07 AM Central Neuraxial Block Date/Time: 03/13/2025 4:06 AM Performed by: Renato Murphy MDAuthorized by: Poppy Daniels MD ?Patient Location: OBReason for Block: OBrequest, Patient request, Labor analgesia, Surgical anesthesia and Post-op pain managementStaff: ?An esthesiologist: Poppy Daniels MD ?Resident/WET CLEANER MACHINE: Renato Murphy MD ?Performed by: resident/CRNAPreanesthetic Checklist: patient identified, IV checked, risks and benefits explained, monitors and equipment checked, timeout performed, pre- op evaluation, site marked and anesthesia consentProcedure: ?Type of Neuraxial: Epidural ?Epidural Description: 1st attempt ? Sterility Prep cap, drape, gloves, hand hygiene and mask ?Patient Position: sitting ?Prep: Betadine and patient draped ? ?Monitoring: heart rate, continuous pulse ox, heart rate / toco and NIBP ?Location: lumbar (1-5) ?Lumbar: L3-L4 ?Approach: midline ? ?Technique: catheter and RYLAN saline ?Guidance with: landmark technique}Epidural/Spinal Alstead and/or Catheter: ?Epidural/Spinal Kit: Delfinoun ?Needle Type: Tuohy ?Needle Gauge:17 G ?Needle Length: 3.5 in (8.89 cm) ?Needle Insertion Depth: 8.5 ?Catheter Type: multiport ? ?Catheter Size: 19 G ? ?Catheter at Skin Depth: 14 ?Number of Attempts: 1 ?Test Dose: negative and lidocaine 1.5% with epinephrine 1-to-200,000 ? ?Dose: 3 cc ? ?Catheter Securement Method: surgical tape and TegadermAssessment: ?Block Outcome: a full evaluation is pending, patient comfortable and patienttolerated procedure well ? ?Procedure Assessment: patient tolerated procedure well with no complicationsNotes: ? Patient identified; pre- procedure verification.Patient prepped and draped in standard sterile fashion using betadine x 3Subcutaneous infiltration with 1% Lidocaine RYLAN at 8.5 cm; catheter secured at 14 cm with mastisol, tegaderm x2 and 3-inch clear tape.Aspiration test negative x 3Testdose negativePatient tolerated procedure well with no immediate complications Epidural expectations; PCEA explained and fall precautions given.[facility] Dehydrogenase 2025-03-12 21:30:04* Test Item Value Reference Range Interpretation Comme [facility] LDH (test code = 7423955605) 227 U/L 120-246 Lab Interpretation (test cod e = 85447-3) Normal [facility] Acid [id number] 20:58:07* Test Item Value Reference Range Interpretation Comme [facility] URIC ACID (test code = 8032070964) 2.9 mg/dL 2.9-6.0 Lab Interpretation (test cod e = 99359-1) Normal [facility] NortheastSerum [id number] 20:58:07* Test Item Value Reference Range Interpretation Comme [facility] CREATININE (test code = 2160-0) 0.66 mg/dL 0.50-1.04 eGFR (test code = 66388-1) 126.6 mL/min/1.73m2 CKD-EPI eGFR (20 21). Assuming creatinine has been stable day-to-day for at least three months, the eGFR indicates Category G1 (>= 90 mL/min/1.73 m2) [facility] (Asparate Amino Transfer)2025-03-12 20:58:07* Test Item Value Reference Range Interpretation Comme [facility] AST(SGOT) (test code = 3497261741) 24 U/L 13-40 Lab Interpretation (test cod e = 52707-6) Normal [facility] NortheastAlanine Amino Transferase (SGPT)2025-03-12 20:58:07* Test Item Value Reference Range Interpretation Comme nts ALTv (test code = 1742-6) 17 U/L 5-35 Lab Interpretation (test cod e = 09469-9) Normal [facility] NortheastHepatitis B Surface [id number] 20:47:23 * Test Item Value Reference Range Interpretation Comme nts HBsAg Semi-Quantitative (jayro t code = 5195-3) 0.11 Negative [facility] with Orkmfzgxsbid4594-19-07 20:00:20* Test Item Value Reference Range Interpretation Comme nts WBC (test code = 6690-2) 13.69 4.30-11.10 H RBC (test code = 789-8) 3.04 3.93-5.25 L HGB (test code = 718-7) 10.2 g/dL 11.6-15.0 L HCT (test code = 4544-3) 28.1 % 35.7-45.2 L MCV (test code = 787-2) 92.4 fL 80.6-95.5 MCH (test code = 785-6) 33.6 pg 25.9-32.8 H MCHC (test code = 786-4) 36.3 g/dL 31.6-35.1 H RDW-SD (test code = 11062-5) 62.4 fL 39.0-49.9 H RDW-CV (test code = 788-0) 18.6 % 12.0-15.5 H PLT (test code = 777-3) 195 166-358 MPV (test code = 72899-1) 10.2 fL 9.5-12.9 NRBC/100 WBC (test code = 3794199276) 0.1 0.0-10.0 NRBC x10^3 (test code = 2448670256) 0.02 See_Comment [Automated message] The system which generated this result transmitted reference range: 10*3/?L. The reference range was not used to interpret this result as normal/abnormal. GRAN MAT (NEUT) % (test code = 770-8) 81.3 % IMM GRAN % (test code = 4023710990) 0.7 % LYMPH % (test code = 736-9) 12.1 % MONO % (test code = 5905-5) 5.3 % EOS % (test code = 713-8) 0.4 % BASO % (test code = 706-2) 0.2 % GRAN MAT x10^3(ANC) (test code = 0842947024) 11.12 10*3/uL 1.88-7.09 H IMM GRAN x10^3 (test code = 6286090315) 0.1 10*3/uL 0.00-0.06 H LYMPH x10^3 (test code = 731-0) 1.66 10*3/uL 1.32-3.29 MONO x10^3 (test code = 742-7) 0.72 10*3/uL 0.33-0.92 EOS x10^3 (test code = 711-2) 0.06 10*3/uL 0.03-0.39 BASO x10^3 (test code = 704-7) 0.03 10*3/uL 0.01-0.07 Lab Interpretation (test code = 44586-4) Abnormal [facility] and Screen - ONCE [id number] 19:40:00 * Test Item Value Reference Range Interpretation Comme nts ABO & RH (test code = 20) A POSITIVE IAT (test code = 1185) Negative [facility] URINALYSIS W SPECIFIC [id number] 16:05:00* Test Item Value Reference Range Interpretation Comme nts POCT U SP GRAV (test code = 3255) . 1.005-1.025 POCT PH U (test code = 3254) . 5-8 POCT U LEUK EST (test code = 3263) . Negative - N egative POCT U NIT (test code = 3262) . Negative - Negati ve POCT U PROT (test code = 3259) trace Negative - Negat shereen POCT U GLU (test code = 3256) 1000 Negative - Negati ve POCT U KETONE (test code = 3258) . Negative - Neg ative POCT U UROBILI (test code = 3260) . 0.2-1 POCT U BILI (test code = 3261) . Negative - Negat shereen POCT U BLD (test code = 3257) . Negative - Negati ve POCT U COLOR (test code = 3266) . POCT U APPEAR (test code = 3267) . [facility] URINALYSIS W SPECIFIC [id number] 15:21:00* Test Item Value Reference Range Interpretation Comme nts POCT U SP GRAV (test code = 3255) . 1.005-1.025 POCT PH U (test code = 3254) . 5-8 POCT U LEUK EST (test code = 3263) . Negative - N egative POCT U NIT (test code = 3262) . Negative - Negati ve POCT U PROT (test code = 3259) trace Negative - Negat shereen POCT U GLU (test code = 3256) 1000 Negative - Negati ve POCT U KETONE (test code = 3258) . Negative - Neg ative POCT U UROBILI (test code = 3260) . 0.2-1 POCT U BILI (test code = 3261) . Negative - Negat shereen POCT U BLD (test code = 3257) . Negative - Negati ve POCT U COLOR (test code = 3266) . POCT U APPEAR (test code = 3267) . [facility] URINALYSIS W SPECIFIC [id number] 17:51:00* Test Item Value Reference Range Interpretation Comme nts POCT U SP GRAV (test code = 3255) . 1.005-1.025 POCT PH U (test code = 3254) . 5-8 POCT U LEUK EST (test code = 3263) . Negative - N egative POCT U NIT (test code = 3262) . Negative - Negati ve POCT U PROT (test code = 3259) neg Negative - Negat shereen POCT U GLU (test code = 3256) 250 Negative - Negati ve POCT U KETONE (test code = 3258) . Negative - Neg ative POCT U UROBILI (test code = 3260) . 0.2-1 POCT U BILI (test code = 3261) . Negative - Negat shereen POCT U BLD (test code = 3257) . Negative - Negati ve POCT U COLOR (test code = 3266) . POCT U APPEAR (test code = 3267) . [facility] URINALYSIS W SPECIFIC [id number] 14:37:00* Test Item Value Reference Range Interpretation Comme nts POCT U SP GRAV (test code = 3255) . 1.005-1.025 POCT PH U (test code = 3254) . 5-8 POCT U LEUK EST (test code = 3263) . Negative - N egative POCT U NIT (test code = 3262) . Negative - Negati ve POCT U PROT (test code = 3259) trace Negative - Negat shereen POCT U GLU (test code = 3256) 1k Negative - Negati ve POCT U KETONE (test code = 3258) . Negative - Neg ative POCT U UROBILI (test code = 3260) . 0.2-1 POCT U BILI (test code = 3261) . Negative - Negat shereen POCT U BLD (test code = 3257) . Negative - Negati ve POCT U COLOR (test code = 3266) . POCT U APPEAR (test code = 3267) . [facility] URINALYSIS W SPECIFIC [id number] 18:37:00* Test Item Value Reference Range Interpretation Comme nts POCT U SP GRAV (test code = 3255) . 1.005-1.025 POCT PH U (test code = 3254) . 5-8 POCT U LEUK EST (test code = 3263) . Negative - N egative POCT U NIT (test code = 3262) . Negative - Negati ve POCT U PROT (test code = 3259) trace Negative - Negat shereen POCT U GLU (test code = 3256) 250 Negative - Negati ve POCT U KETONE (test code = 3258) neg Negative - Neg ative POCT U UROBILI (test code = 3260) . 0.2-1 POCT U BILI (test code = 3261) . Negative - Negat shereen POCT U BLD (test code = 3257) neg Negative - Negati ve POCT U COLOR (test code = 3266) . POCT U APPEAR (test code = 3267) . [facility] URINALYSIS W SPECIFIC [id number] 18:58:00* Test Item Value Reference Range Interpretation Comme nts POCT U SP GRAV (test code = 3255) . 1.005-1.025 POCT PH U (test code = 3254) 5 mg/dl 5-8 POCT U LEUK EST (test code = 3263) 1+ Negative - Negative POCT U NIT (test code = 3262) negative Negative - Negati ve POCT U PROT (test code = 3259) trace Negative - Negat shereen POCT U GLU (test code = 3256) 100 Negative - Negati ve POCT U KETONE (test code = 3258) negative Negative - Neg ative POCT U UROBILI (test code = 3260) . 0.2-1 POCT U BILI (test code = 3261) . Negative - Negat shereen POCT U BLD (test code = 3257) negative Negative - Negati ve POCT U COLOR (test code = 3266) . POCT U APPEAR (test code = 3267) . [facility] URINALYSIS W SPECIFIC [id number] 20:24:00* Test Item Value Reference Range Interpretation Comme nts POCT U SP GRAV (test code = 3255) . 1.005-1.025 POCT PH U (test code = 3254) 5 mg/dl 5-8 POCT U LEUK EST (test code = 3263) 1+ Negative - Negative POCT U NIT (test code = 3262) positive Negative - Negati ve POCT U PROT (test code = 3259) trace Negative - Negat shereen POCT U GLU (test code = 3256) 1k Negative - Negati ve POCT U KETONE (test code = 3258) neg Negative - Neg ative POCT U UROBILI (test code = 3260) . 0.2-1 POCT U BILI (test code = 3261) . Negative - Negat shereen POCT U BLD (test code = 3257) neg Negative - Negati ve POCT U COLOR (test code = 3266) . POCT U APPEAR (test code = 3267) . [facility] - NON-INVASIVE TEST RESULTS 2024-12-28 20:02:46Ordered by an unspecified provider.[facility] - NON-INVASIVE TEST [id number] 18:15:54 Ordered by an unspecified provider.[facility] Urinalysis w/o Specific [id number] 14:04:00* Test Item Value Reference Range Interpretation Comme nts POCT PH U (test code = 3254) 5 mg/dl 5-8 POCT U LEUK EST (test code = 3263) 1+ Negative - Negative POCT U NIT (test code = 3262) neg Negative - Negati ve POCT U PROT (test code = 3259) trace Negative - Negat shereen POCT U GLU (test code = 3256) 250 Negative - Negati ve POCT U KETONE (test code = 3258) neg Negative - Neg ative POCT U BLD (test code = 3257) neg Negative - Negati ve Lab Interpretation (test cod e = 72249-3) [facility] [id number] 14:04:00* Test Item Value Reference Range Interpretation Comme nts POCT PREG (test code = 1605) Positive On board controls acceptable with C Line (test code = 3574) Yes POCT PREG LOT # (test code = 3575) POCT PREG TEST DATE ( test code = 3576) Lab Interpretation (test cod e = 37928-9) [facility] [id number] 15:46:14* Test Item Value Reference Range Interpretation Comme nts Leukocytes (test code = Leukocytes) Trace Nitrite (test code = Nitrite) negative Urobilinogen (test code = Urobilinogen) 2 Protein (test code = Protein) Negative pH (test code = pH) 5.5 Blood (test code = Blood) Negative Specific Arthur (test code = Specific Arthur) 1.020 Ketone (test code = Ketone) Negative Bilirubin (test code = Bilirubin) Negative Glucose (test code = Glucose) 250 Appearance (test code = Appearance) Clear Color (test code = Color) [place] [facility] [id number] 10:46:39* Test Item Value Reference Range Interpretation Comme nts Leukocytes (test code = Leukocytes) Negative Nitrite (test code = Nitrite) negative Urobilinogen (test code = Urobilinogen) 4 Protein (test code = Protein) Trace pH (test code = pH) 5.5 Blood (test code = Blood) Negative Specific Arthur (test code = Specific Arthur) 1.030 Ketone (test code = Ketone) Trace Bilirubin (test code = Bilirubin) Small Glucose (test code = Glucose) 100 Appearance (test code = Appearance) Clear Color (test code = Color) Yellow [facility] [id number] 23:49:00* Test Item Value Reference Range Interpretation Comme nts report summary (test code = report summary) Patient Education Request [facility], [id number] 00:00:00* Test Item Value Reference Range Interpretation Comme nts HCG, QUANTITATIVE (test code = 2506) 8321 MIU/ML Frank DixonHCG, [id number] 00:00:00* Test Item Value Reference Range Interpretation Comme nts HCG, QUANTITATIVE (test code = 2506) 8321 MIU/ML Frank DixonHCG, [id number] 00:00:00* Test Item Value Reference Range Interpretation Comme nts HCG, QUANTITATIVE (test code = 2506) 5961 MIU/ML Frank DixonHCG, [id number] 00:00:00* Test Item Value Reference Range Interpretation Comme nts HCG, QUANTITATIVE (test code = 2506) 5961 MIU/ML Frank DixonPOCT [id number] 07:06:00* Test Item Value Reference Range Interpretation Comme nts POCT PREG (test code = 1605) Negative On board controls acceptable with C Line (test code = 3574) Yes POCT PREG LOT # (test code = 3575) [id number] POCT PREG TEST DATE ( test code = 3576) 01/21/2025 Lab Interpretation (test cod e = 16370-4) [facility] [id number] 07:06:00* Test Item Value Reference Range Interpretation Comme nts POCT PREG (test code = 1605) Negative On board controls acceptable with C Line (test code = 3574) Yes POCT PREG LOT # (test code = 3575) 300881 POCT PREG TEST DATE ( test code = 3576) 01/21/2025 Lab Interpretation (test cod e = 64300-3) Normal [facility] ABDOMEN PELVIS WO [id number] 06:51:12Ordering physician: DIMITRIS HIGHTOWER Indication: Abdominal and flank pain COMPARISON: None TECHNIQUE:Axial images of the abdomen and pelvis were performed withoutthe administration of intravenous contrast material. Images werereformatted in the coronal and sagittal plane. CT scan was performedaccordi ng to ALARA (as low as reasonably achievable) policy. FINDINGS: The lung bases are clear. The patient is status postcholecystectomy. The spleen is enlarged at 19 cm in long axis. Thenoncontrast appearance of the liver, adrenal glands and pancreas is withinnormal limits. The kidneys are normal in appearance bilaterally withouthydronephrosis or renal calculus. No ureteral or bladder calculus isappreciated. There is no abdominal aortic aneurysm. There are mildlyprominent lymph nodes in the left retroperitoneum, with left periaorticnode measuring 15 mm (series 2, image 74). There is no free fluidin the pelvis. The noncontrast appearance of theuterus and ovaries is within normal limits. There is no bowel obstruction,widespread diverticulosis or acute diverticulitis. The appendix isidentified and within normal limits. Bone windows through the abdomen andpelvis demonstrate no osseous destructive lesion. [facility]. METABOLIC PANEL ([id number])2024-02-11 06:11:16* Test Item Value Reference Range Interpretation Comme nts NA (test code = 9017451778) 139 mmol/L 135-145 K (test code = 9663619430) 3.6 mmol/L 3.5-5.0 CL (test code = 6277248603) 104 mmol/L 98-108 CO2 TOTAL (test code = 3620982238) 25 mmol/L 23-31 AGAP (test code = 7601786745) 10 2-16 BUN (test code = 4410107480) 15 mg/dL 7-23 GLUCOSE (test code = 9802509306) 92 mg/dL 70-110 CREATININE (test code = 2160-0) 1.00 mg/dL 0.50-1.04 TOTAL BILI (test code = 8519869251) 3.1 mg/dL 0.1-1.1 H CALCIUM (test code = 5426182827) 9.1 mg/dL 8.6-10.6 T PROTEIN (test code = 0004173413) 8.3 g/dL 6.3-8.2 H ALBUMIN (test code = 0570283795) 4.7 g/dL 3.5-5.0 ALK PHOS (test code = 5808247283) 61 U/L 34-122 ALTv (test code = 1742-6) 22 U/L 5-35 AST(SGOT) (test code = 6968826084) 29 U/L 13-40 eGFR (test code = 55748-3) 81.9 mL/min/1.73m2 CKD-EPI eGFR (2020). Assuming creatinine has been stable day-to-day for at least three months, the eGFR indicates Category G2 (60 - 89 mL/min/1.73 m2) Lab Interpretation (test code = 12799-7) [facility]OL[facility] ([id number])2024-02-11 06:11:16* Test Item Value Reference Range Interpretation Comme nts NA (test code = 9503984948) 139 mmol/L 135-145 K (test code = 9547885940) 3.6 mmol/L 3.5-5.0 CL (test code = 9960543685) 104 mmol/L 98-108 CO2 TOTAL (test code = 6602546938) 25 mmol/L 23-31 AGAP (test code = 2189573318) 10 2-16 BUN (test code = 2771469874) 15 mg/dL 7-23 GLUCOSE (test code = 3803389216) 92 mg/dL 70-110 CREATININE (test code = 2160-0) 1.00 mg/dL 0.50-1.04 TOTAL BILI (test code = 7243610328) 3.1 mg/dL 0.1-1.1 H CALCIUM (test code = 0728569802) 9.1 mg/dL 8.6-10.6 T PROTEIN (test code = 1994124910) 8.3 g/dL 6.3-8.2 H ALBUMIN (test code = 9330306944) 4.7 g/dL 3.5-5.0 ALK PHOS (test code = 1460098167) 61 U/L 34-122 ALTv (test code = 1742-6) 22 U/L 5-35 AST(SGOT) (test code = 1341326172) 29 U/L 13-40 eGFR (test code = 18494-5) 81.9 mL/min/1.73m2 CKD-EPI eGFR (2020). Assuming creatinine has been stable day-to-day for at least three months, the eGFR indicates Category G2 (60 - 89 mL/min/1.73 m2) Lab Interpretation (test code = 44489-3) [facility] 06:10:41* Test Item Value Reference Range Interpretation Comme nts LIPASE (test code = 3013787146) 61 U/L 0-220 Lab Interpretation (test cod e = 22932-9) [facility]2024[facility] 06:10:41* Test Item Value Reference Range Interpretation Comme nts LIPASE (test code = 7102931333) 61 U/L 0-220 Lab Interpretation (test cod e = 29351-0) [facility] WITH [id number] 05:54:35* Test Item Value Reference Range Interpretation Comme nts WBC (test code = 6690-2) 10.48 4.30-11.10 RBC (test code = 789-8) 3.18 3.93-5.25 L HGB (test code = 718-7) 10.4 g/dL 11.6-15.0 L HCT (test code = 4544-3) 28.7 % 35.7-45.2 L MCV (test code = 787-2) 90.3 fL 80.6-95.5 MCH (test code = 785-6) 32.7 pg 25.9-32.8 MCHC (test code = 786-4) 36.2 g/dL 31.6-35.1 H RDW-SD (test code = 55966-8) 58.1 fL 39.0-49.9 H RDW-CV (test code = 788-0) 17.7 % 12.0-15.5 H PLT (test code = 777-3) 225 166-358 MPV (test code = 59627-8) 9.7 fL 9.5-12.9 NRBC/100 WBC (test code = 6013938489) 0.0 0.0-10.0 NRBC x10^3 (test code = 0708873593) See_Comment [Automated messa ge] The system which generated this result transmitted reference range: 10*3/?L. The reference range was not used to interpret this result as normal/abnormal. GRAN MAT (NEUT) % (test code = 770-8) 64.9 % IMM GRAN % (test code = 0022103994) 1.10 % LYMPH % (test code = 736-9) 25.0 % MONO % (test code = 5905-5) 7.4 % EOS % (test code = 713-8) 0.9 % BASO % (test code = 706-2) 0.7 % GRAN MAT x10^3(ANC) (test code = 4584715964) 6.80 10*3/uL 1.88-7.09 IMM GRAN x10^3 (test code = 7687348848) 0.12 10*3/uL 0.00-0.06 H LYMPH x10^3 (test code = 731-0) 2.62 10*3/uL 1.32-3.29 MONO x10^3 (test code = 742-7) 0.78 10*3/uL 0.33-0.92 EOS x10^3 (test code = 711-2) 0.09 10*3/uL 0.03-0.39 BASO x10^3 (test code = 704-7) 0.07 10*3/uL 0.01-0.07 Lab Interpretation (test code = 98506-9) [facility] [id number] 05:54:35* Test Item Value Reference Range Interpretation Comme nts WBC (test code = 6690-2) 10.48 4.30-11.10 RBC (test code = 789-8) 3.18 3.93-5.25 L HGB (test code = 718-7) 10.4 g/dL 11.6-15.0 L HCT (test code = 4544-3) 28.7 % 35.7-45.2 L MCV (test code = 787-2) 90.3 fL 80.6-95.5 MCH (test code = 785-6) 32.7 pg 25.9-32.8 MCHC (test code = 786-4) 36.2 g/dL 31.6-35.1 H RDW-SD (test code = 23108-5) 58.1 fL 39.0-49.9 H RDW-CV (test code = 788-0) 17.7 % 12.0-15.5 H PLT (test code = 777-3) 225 166-358 MPV (test code = 63224-1) 9.7 fL 9.5-12.9 NRBC/100 WBC (test code = 7722317159) 0.0 0.0-10.0 NRBC x10^3 (test code = 2618739430) See_Comment [Automated messa ge] The system which generated this result transmitted reference range: 10*3/?L. The reference range was not used to interpret this result as normal/abnormal. GRAN MAT (NEUT) % (test code = 770-8) 64.9 % IMM GRAN % (test code = 2167294564) 1.10 % LYMPH % (test code = 736-9) 25.0 % MONO % (test code = 5905-5) 7.4 % EOS % (test code = 713-8) 0.9 % BASO % (test code = 706-2) 0.7 % GRAN MAT x10^3(ANC) (test code = 4407729807) 6.80 10*3/uL 1.88-7.09 IMM GRAN x10^3 (test code = 0185567544) 0.12 10*3/uL 0.00-0.06 H LYMPH x10^3 (test code = 731-0) 2.62 10*3/uL 1.32-3.29 MONO x10^3 (test code = 742-7) 0.78 10*3/uL 0.33-0.92 EOS x10^3 (test code = 711-2) 0.09 10*3/uL 0.03-0.39 BASO x10^3 (test code = 704-7) 0.07 10*3/uL 0.01-0.07 Lab Interpretation (test code = 46816-2) [facility] URINALYSIS W/O SPECIFIC [id number] 20:54:00* Test Item Value Reference Range Interpretation Comme nts POCT PH U (test code = 3254) * 5-8 POCT U LEUK EST (test code = 3263) trace Negative - Negative POCT U NIT (test code = 3262) positive Negative - Negati ve POCT U PROT (test code = 3259) trace Negative - Negat shereen POCT U GLU (test code = 3256) negative Negative - Negati ve POCT U KETONE (test code = 3258) negative Negative - Neg ative POCT U BLD (test code = 3257) large Negative - Negati ve [facility] URINALYSIS W/O SPECIFIC [id number] 20:54:00* Test Item Value Reference Range Interpretation Comme nts POCT PH U (test code = 3254) * 5-8 POCT U LEUK EST (test code = 3263) trace Negative - Negative POCT U NIT (test code = 3262) positive Negative - Negati ve POCT U PROT (test code = 3259) trace Negative - Negat shereen POCT U GLU (test code = 3256) negative Negative - Negati ve POCT U KETONE (test code = 3258) negative Negative - Neg ative POCT U BLD (test code = 3257) large Negative - Negati ve [facility] [id number] 20:23:00* Test Item Value Reference Range Interpretation Comme nts POCT PREG (test code = 1605) Negative On board controls acceptable with C Line (test code = 3574) Yes POCT PREG LOT # (test code = 3575) POCT PREG TEST DATE ( test code = 3576) [facility] [id number] 20:23:00* Test Item Value Reference Range Interpretation Comme nts POCT PREG (test code = 1605) Negative On board controls acceptable with C Line (test code = 3574) Yes POCT PREG LOT # (test code = 3575) POCT PREG TEST DATE ( test code = 3576) [facility] 20:03:00* Test Item Value Reference Range Interpretation Comme nts APPEARANCE (test code = 8213249462) Hazy Clear A COLOR (test code = 0121339658) Yellow Yellow PH (test code = 9125103045) 4.8-8.0 SP GRAVITY (test code = 7505847086) 1.003-1.030 GLU U QUAL (test code = 2703535277) Normal Normal BLOOD (test code = 3453281236) 3+ Negative A KETONES (test code = 6651283041) Negative Negative PROTEIN (test code = 2887-8) Negative Negative UROBILIN (test code = 9556587619) Normal Normal BILIRUBIN (test code = 2531601157) Negative Negative NITRITE (test code = 0654909970) Negative Negative LEUK DARSHAN (test code = 2175261643) 250/uL Negative A RBC/HPF (test code = 2736240145) See_Comment H [Automated messa ge] The system which generated this result transmitted reference range: 0 - 3 HPF. The reference range was not used to interpret this result as normal/abnormal. WBC/HPF (test code = 1956850606) See_Comment [Automated messa ge] The system which generated this result transmitted reference range: 0 - 5 HPF. The reference range was not used to interpret this result as normal/abnormal. BACTERIA (test code = 9663280481) Moderate Negative A SQ EPITH (test code = 8450937839) HPF Lab Interpretation (test code = 47236-5) Abnormal [facility] URINALYSIS W/O SPECIFIC [id number] 15:09:00* Test Item Value Reference Range Interpretation Comme nts POCT PH U (test code = 3254) 5 mg/dl 5-8 POCT U LEUK EST (test code = 3263) 2+ Negative - Negative POCT U NIT (test code = 3262) neg Negative - Negati ve POCT U PROT (test code = 3259) trace Negative - Negat shereen POCT U GLU (test code = 3256) neg Negative - Negati ve POCT U KETONE (test code = 3258) neg Negative - Neg ative POCT U BLD (test code = 3257) neg Negative - Negati ve [facility] URINALYSIS W/O SPECIFIC [id number] 15:09:00* Test Item Value Reference Range Interpretation Comme nts POCT PH U (test code = 3254) 5 mg/dl 5-8 POCT U LEUK EST (test code = 3263) 2+ Negative - Negative POCT U NIT (test code = 3262) neg Negative - Negati ve POCT U PROT (test code = 3259) trace Negative - Negat shereen POCT U GLU (test code = 3256) neg Negative - Negati ve POCT U KETONE (test code = 3258) neg Negative - Neg ative POCT U BLD (test code = 3257) neg Negative - Negati ve [facility] [id number] 15:08:00* Test Item Value Reference Range Interpretation Comme nts POCT PREG (test code = 1605) Positive On board controls acceptable with C Line (test code = 3574) Yes POCT PREG LOT # (test code = 3575) POCT PREG TEST DATE ( test code = 3576) [facility] [id number] 15:08:00* Test Item Value Reference Range Interpretation Comme nts POCT PREG (test code = 1605) Positive On board controls acceptable with C Line (test code = 3574) Yes POCT PREG LOT # (test code = 3575) POCT PREG TEST DATE ( test code = 3576) [facility] History and Physical Notes Date/Time Note Provider Source 2025-03-12 14:26:22 TRIAGE/ADMISSION HISTORY & PHYSICAL TRIAGE/ADMISSION DATE: 03/12/2025 2:26 PM OB ATTENDING IN TRIAGE AND/OR ON ADMISSION: ELIZABETH QUINONEZ IDENTIFYING DATA Farzaneh Hodge is 24 year old, /White, 39w0d, female with DON. Patient's last menstrual period was 05/20/2024. : 2000 Primary [facility] Care Clinic: [facility] CHIEF COMPLAINT IOL HISTORY OF PRESENT ILLNESS Farzaneh Hodge is a 24 year old at 39w0d who presents for sIOL. Patient denies vaginal bleeding, denies leakage of fluid, denies contractions. Patient denies headache, denies nausea/vomiting, denies RUQ pain, denies visual abnormalities. Endorses normal movement. PAST OBSTETRIC HISTORY OB History Para Term AB Living 2 1 SAB IAB Ectopic Multiple Live Births 1 # Outcome Date GA Lbr Isaias/2nd Weight Sex Type Anes PTL Lv 2 Current 1 SAB 04/14/20 7w5d PAST MEDICAL HISTORY Patient Active Problem List Diagnosis Date Noted 39 weeks gestation of 03/12/2025 Encounter for planned induction of labor 03/12/2025 Encounter for elective induction of labor 03/12/2025 Morbid obesity with body mass index of 40.0-49.9 02/13/2025 NST (non-stress test) nonreactive 02/13/2025 Cramping affecting , antepartum 02/13/2025 Two vessel cord 01/02/2025 Susceptible to varicella (non-immune), currently 12/19/2024 Anemia of mother in , antepartum 12/19/2024 Cervical Papanicolaou smear negative within last 12 months 12/18/2024 History of miscarriage, currently 12/14/2024 Low lying placenta, antepartum 12/14/2024 Supervision of high-risk 03/28/2020 Spherocytosis 03/28/2020 Obesity in 03/28/2020 Operations: Past Surgical History: Procedure Laterality Date CHOLECYSTECTOMY 2020 TONSILLECTOMY WITH ADENOIDECTOMY 2001 Past Medical History: Diagnosis Date Anemia 2018 spherocytosis Cervical Papanicolaou smear negative within last 12 months 12/18/2024 Migraines 2019 Spirochetosis 2017 CURRENT HEALTH STATUS Medications: Current Facility-Administered Medications Medication Dose Route Frequency Last Rate Last Admin D5W-LR IV infusion 1,000 mL 1,000 mL IV Infusion TITRATE 75 mL/hr at 03/12/25 1437 1,000 mL at 03/12/25 1437 lactated ringers IV infusion 250 mL 250 mL IV Infusion PRN - SEE INSTRUCTIONS lidocaine 1% (PF) (XYLOCAINE) injection 0.3 mL 0.3 mL Infiltration PRN - SEE INSTRUCTIONS lidocaine 1% (XYLOCAINE) 10 mg/mL (1 %) injection 50 mL 50 mL Infiltration PRN - SEE INSTRUCTIONS penicillin g potassium 5 Million Units in NaCl 0.9% (NS) 100 mL MINI-BAG 5 Million Units IV Piggyback ONCE Followed by penicillin GK 3 million units in NS 50 mL IV infusion (CNR) 3 Million Units IV Piggyback Q4H ABX sodium citrate-citric acid (BICITRA) 500-334 mg/5 mL solution 30 mL 30 mL Oral PRE-PROCEDURE ONCE Allergies and drug reactions: Patient has no known allergies. HOME MEDICATIONS Medications Prior to Admission Medication Sig Dispense Refill Last Dose/Taking PNV 67-iron ps-folate no.1-dha (VITAFOL ULTRA) 29 mg iron- 1 mg-200 mg Cap Take 1 tablet by mouth in the morning for 180 days. 30 capsule 8 foLIC acid 1 mg tablet Take 1 tablet by mouth in the morning for 210 days. 30 tablet 6 [DISCONTINUED] ferrous gluconate 324 mg (38 mg iron) tablet Take 1 tablet by mouth in the morning and 1 tablet in the evening. ascorbic acid, vitamin C, 500 mg tablet Take 1 tablet by mouth in the morning and 1 tablet at noon and 1 tablet in the evening. 90 tablet 2 ferrous sulfate 325 mg (65 mg iron) tablet Take 1 tablet by mouth in the morning and 1 tablet in the evening. 60 tablet 3 [DISCONTINUED] ferrous sulfate (IRON) 325 mg (65 mg iron) tablet Take 1 tablet by mouth in the morning and 1 tablet in the evening. [DISCONTINUED] FOLIC ACID ORAL Take by mouth. [DISCONTINUED] nitrofurantoin monohyd/m-cryst (MACROBID ORAL) Take by mouth. SOCIAL HISTORY Tobacco History: Social History Tobacco Use Smoking Status Former Smokeless Tobacco Former Drug History: Social History Substance and Sexual Activity Drug Use Never Alcohol History: Social History Substance and Sexual Activity Alcohol Use Never FAMILY HISTORY Family History Problem Relation Age of Onset Diabetes Mother Depression Mother Depression Father Heart Sister No Significant Medical Problems Brother Diabetes Maternal Grandmother Depression Maternal Grandmother Heart Maternal Grandmother Diabetes Maternal Grandfather Heart Maternal Grandfather Diabetes Paternal Grandmother Diabetes Paternal Grandfather Cancer Paternal Grandfather bone, skin, kidney Arthritis NoFHx Asthma NoFHx defects NoFHx Breast Cancer NoFHx Colon Cancer NoFHx Ovarian Cancer NoFHx Uterine Cancer NoFHx Genetic NoFHx High cholesterol NoFHx Hypertension NoFHx Mental retardation NoFHx Neurological NoFHx Osteoporosis NoFHx Psychiatry NoFHx Other - see comments NoFHx REVIEW OF SYSTEMS General: negative Constitutional: negative Eyes: negative ENT/Mouth: negative Cardiovascular: negative Respiratory: negative Gastrointestinal:negative Genitourinary: negative Musculoskeletal: negative Skin/breast: negative Neurological: negative Psychiatric: negative Endocrine: negative Hemat/Lymph: negative Allergic/Immuno:none VITAL SIGNS BP: (124-144)/(69-80) Temp: [36.8 ?C (98.3 ?F)] Temp source: Axillary (03/12 1401) Pulse: [73-80] Resp: [20] SpO2: [99 %-100 %] Height: [160 cm (5' 3")] Weight: [123.8 kg (273 lb)] BMI (calculated): [48.36] PHYSICAL EXAMINATIONS General: patient alert and in no acute distress HEENT: Normal Lungs: unlabored breathing Breast: deferred Cardiology: negative findings: regular rate and rhythm and peripheral pulses intact and regular Abdomen: bowel sounds normoactive, Inspection: and Gravid Extremities: no clubbing, cyanosis, or edema, no tenderness, DTRs: normal and symmetric Neuro: patient moving all extremities, no facial droop : No Vaginal bleeding. No leaking of fluid, abnormal discharge or lesion present. REVIEW OF LABORATORY, PATHOLOGY, AND RADIOLOGY DATA Lab results: CBC BMP PT/INR WBC (10*3/?L) Date Value 03/12/2025 13.69 (H) NA (mmol/L) Date Value 02/11/2024 139 No results found for: "PT" RBC (10*6/?L) Date Value 03/12/2025 3.04 (L) K (mmol/L) Date Value 02/11/2024 3.6 No results found for: "PTINR" PLT (10*3/?L) Date Value 03/12/2025 195 CALCIUM (mg/dL) Date Value 02/11/2024 9.1 HGB (g/dL) Date Value 03/12/2025 10.2 (L) CL (mmol/L) Date Value 02/11/2024 104 aPTT HCT (%) Date Value 03/12/2025 28.1 (L) BUN (mg/dL) Date Value 02/11/2024 15 No results found for: "APTTPAT" CREATININE (mg/dL) Date Value 02/11/2024 1.00 GLUCOSE (mg/dL) Date Value 02/11/2024 92 CO2 TOTAL (mmol/L) Date Value 02/11/2024 25 Type & Screen Rubella Varicella ABO & RH (no units) Date Value 03/12/2025 A POSITIVE Rubella screen IgG (no units) Date Value 12/14/2024 Positive No components found for: "VZIGG" No results found for: "TSABINT" Hep B HIV Syphilis No results found for: "HBS" No results found for: "HIV" Syphilis IgG/IgM (no units) Date Value 12/14/2024 Nonreactive HBsAg (no units) Date Value 12/14/2024 Negative HBsAg Semi-Quantitative (no units) Date Value 12/14/2024 0.18 No results found for: "HIVMULTIPLEX" Group B Strep Chlamydia Group B Streptococcus by PCR (no units) Date Value 02/13/2025 Positive (A) C. trachomatis Nucleic Acid (no units) Date Value 02/13/2025 Negative GTT No results found for: "GLUF" GLUC 1 HR (mg/dL) Date Value 12/14/2024 130 No components found for: "GLU2H" No results found for: "GLU3H" PASD Screening Prior ? : No Prior Uterine Surgery?: No Placenta low lying/previa in current ? : No Ultrasound suspicion of PASD in current ?: No Screening outcome: A positive screening outcome indicates a history of prior delivery or prior uterine surgery, AND the presence of either a placenta low lying/previa or ultrasound suspicion of PASD in the current . Negative screening. Present on Admission: Susceptible to varicella (non-immune), currently Anemia of mother in , antepartum Morbid obesity with body mass index of 40.0-49.9 Two vessel cord 39 weeks gestation of Encounter for planned induction of labor -Current everyday vaping: Nicotine TRIAGE/ADMISSION ASSESSMENT AND PLAN Farzaneh Hodge is a 24 year old at 39w0d by U @25w presents for planned induction. - SVE: Closed / (thick) / (high) - Contractions (number / 10 minute): irreg Rueda Score: 0 Plan: IOL/cervical ripening: -Reviewed different options especially with Rueda score. Patient does not desire Leone bulb placement. She states very hungry and wants food before ripening starts. Can have regular diet x 1 before cervical ripening. -Misoprostol 25 mcg vaginal. Leone bulb will be attempted if patient consents later -Patient plans to breast and formula feeding. -Options for analgesia/anesthesia reviewed with patient. Patient plans on an epidural for analgesia/anesthesia prn. Antepartum course reviewed: - 1 h 130, sero negative, Rimmune, VZVnot immune, -A positive/IAT negative, GBS positive, PAP Negative in 2023 per patient - H/H, plt: 10.7 / 30.5, 207 on 02/21/2025 - PP control plan: Condom - [place] RWSP Fetus: - Presentation on admission: cephalic - Posterior Fundal placenta - EFW: 8 lbs - FHT reactive and reassuring - Two Vessel Cord. - NIPT: low risk and, AFP: Neg -Maternal Carrier Screen Neg Plan was discussed with OB ATTENDING: ELIZABETH QUINONEZ OB RESIDENT: N/A Informed consent discussed with the patient, including: condition, proposed care, treatments and services, alternative forms of treatment, and risks of no treatment. Details discussed around the procedures to be used, and the risks and hazards involved, potential benefits, and side effects of the patient s proposed care, treatment, and services; the likelihood of the patient achieving his or her goals; and any potential problems that might occur during recuperation. Reasonable alternative also discussed with the patient s proposed care, treatment, and services. The discussion encompasses risks, benefits, and side effects related to the alternative and risks related to not receiving the proposed care, treatment, and services. Josephine Mora APRN, CNM Prescriptive Authority MD: Marquis Barrett MD Cosigned by Elizabeth Quinonez MD at 03/12/2025 4:38 PM CDT Associated attestation - Elizabeth Quinonez MD - 03/12/2025 4:38 PM CDT I was the faculty on L& Don 03/12/2025. I was available for consultation. Elizabeth Quinonez MD [facility] - [facility] Procedure Notes Date/Time Note Provider Source 2025-03-13 04:06:51 Associated Order(s): Central Neuraxial Block Central Neuraxial Block Date/Time: 03/13/2025 4:06 AM Performed by: Renato Murphy MD Authorized by: Poppy Daniesl MD Patient Location: OB Reason for Block: OB request, Patient request, Labor analgesia, Surgical anesthesia and Post-op pain management Staff: Anesthesiologist: Poppy Daniels MD Resident/WET CLEANER MACHINE: Renato Murphy MD Performed by: resident/WET CLEANER MACHINE Preanesthetic Checklist: patient identified, IV checked, risks and benefits explained, monitors and equipment checked, timeout performed, pre-op evaluation, site marked and anesthesia consent Procedure: Type of Neuraxial: Epidural Epidural Description: 1st attempt Sterility Prep cap, drape, gloves, hand hygiene and mask Patient Position: sitting Prep: Betadine and patient draped Monitoring: heart rate, continuous pulse ox, heart rate / toco and NIBP Location: lumbar (1-5) Lumbar: L3-L4 Approach: midline Technique: catheter and RYLAN saline Guidance with: landmark technique} Epidural/Spinal Alstead and/or Catheter: Epidural/Spinal Kit: Delfinoun Needle Type: Tuohy Needle Gauge: 17 G Needle Length: 3.5 in (8.89 cm) Needle Insertion Depth: 8.5 Catheter Type: multiport Catheter Size: 19 G Catheter at Skin Depth: 14 Number of Attempts: 1 Test Dose: negative and lidocaine 1.5% with epinephrine 1-to-200,000 Dose: 3 cc Catheter Securement Method: surgical tape and Tegaderm Assessment: Block Outcome: a full evaluation is pending, patient comfortable and patient tolerated procedure well Procedure Assessment: patient tolerated procedure well with no complications Notes: Patient identified; pre-procedure verification. Patient prepped and draped in standard sterile fashion using betadine x 3 Subcutaneous infiltration with 1% Lidocaine RYLAN at 8.5 cm; catheter secured at 14 cm with mastisol, tegaderm x2 and 3-inch clear tape. Aspiration test negative x 3 Test dose negative Patient tolerated procedure well with no immediate complications Epidural expectations; PCEA explained and fall precautions given. ANESTHESIOLOGY [facility] Notes Date/Time Note Provider Source 2025-03-15 13:50:48 This note was copied from a baby's chart. Assessment (most recent) Assessment - 03/15/25 1300 General Information Visit Follow-up Infant Oral Assessment Oral assessment No changes from previous assessment Breast Assessment Breast Assessment No change from previous assessment Literature Resources Education On-demand feeds at least 8 or more over 24 hours;Diaper counts/color;Hand expression;Benefits of skin to skin contact;Signs of an effective latch;2nd day/growth spurt cluster feeds;Maternal nutrition/hydration;Lactog enesis;Benefits of breast massage and hand expression;Engorgement signs and treatment;Ways to increase milk supply Weapons Electrical Engineering Officer Observation Pumping No Assist with latch Position right side Cross cradle;Football;Infant latched effectively;Suckled in coordinated bursts;Audible swallows;Nipple rounded upon release Interventions Motherlove nipple cream;Placed skin to skin;Taught hand expression Mother demonstrated teach back of Positioning and latching infant at breast;Breast massage and hand expression Follow up Mom will call staff;[facility] warmline;WIC Recommended Feeding Plan Recommended feeding plan Frequent [id number]-xz-[id number] time with parents;On-demand , 8-12 times in 24 hours not to exceed 6 hours between feeds OTHER $ SERVICES Follow-up Amy RODRIGUEZ, RNC-OB, IBCLC Amy Smith RN [facility] - [facility] 2025-03-15 11:43:35 Images from the original note were not included. This note was copied from a baby's chart. Assessment (most recent) Assessment - 03/15/25 1050 General Information Visit Follow-up Percent of weight loss- Infant 3.24 Feeding plan Breast and Formula mother expressed her frustration with being told to give formula; when asked, she reported they(parents) were told to because the baby had no eaten in five hours despite repeated attempts to latch; no blood sugar was checked, no hand pump was offered nor was the mother encouraged to hand express colostrum. Plan for LC to return with onset of hunger cues and work on latching to return mother to her goals. Oral Assessment Oral assessment Deferred Breast Assessment Breast Assessment Deferred Literature Resources Education On-demand feeds at least 8 or more over 24 hours;Diaper counts/color;Hand expression;Benefits of skin to skin contact;2nd day/growth spurt cluster feeds;Lactogenesis;Benefit s of breast massage and hand expression;Ways to increase milk supply Handouts given [place] [employer] Electrical Engineering Officer Observation Pumping No Reported;Mom states infant latches well with no pain;Will return to assist at later time Follow up Follow up in hospital;Mom will call staff Recommended Feeding Plan Recommended feeding plan Frequent ywyu-wq-ysup time with parents;On-demand , 8-12 times in 24 hours not to exceed 6 hours between feeds OTHER $ SERVICES Follow-up Amy RODRIGUEZ, RNC-OB, IBCLC [facility] 2025-03-15 08:56:51 Problem: Intrapartum process (including labor pain) Goal: Absence of or reduction of complications of labor Outcome: Adequate for discharge Goal: Able to cope with pain Outcome: Adequate for discharge Goal: Adequate to move to next level of care Outcome: Adequate for discharge Goal: Reduction in pain sensation Outcome: Adequate for discharge Problem: Falls, Risk of Goal: Absence of falls Outcome: Adequate for discharge Problem: Pain Goal: Control of pain at or below patient's documented comfort goal Outcome: Adequate for discharge Goal: Reduction in pain sensation Outcome: Adequate for discharge Problem: Complications of preeclampsia/eclampsia (risk or actual) Goal: Absence of seizure activity Outcome: Adequate for discharge Goal: Absence of signs and symptoms of preeclampsia Outcome: Adequate for discharge Problem: Bleeding, Risk of Goal: Absence of impaired coagulation signs and symptoms Outcome: Adequate for discharge Goal: Absence of active bleeding Outcome: Adequate for discharge [facility] 2025-03-14 20:36:15 Problem: Intrapartum process (including labor pain) Goal: Absence of or reduction of complications of labor Outcome: Progressing as expected Goal: Able to cope with pain Outcome: Progressing as expected Goal: Adequate to move to next level of care Outcome: Progressing as expected Goal: Reduction in pain sensation Outcome: Progressing as expected Problem: Falls, Risk of Goal: Absence of falls Outcome: Progressing as expected Problem: Pain Goal: Control of pain at or below patient's documented comfort goal Outcome: Progressing as expected Goal: Reduction in pain sensation Outcome: Progressing as expected Problem: Complications of preeclampsia/eclampsia (risk or actual) Goal: Absence of seizure activity Outcome: Progressing as expected Goal: Absence of signs and symptoms of preeclampsia Outcome: Progressing as expected Problem: Bleeding, Risk of Goal: Absence of impaired coagulation signs and symptoms Outcome: Progressing as expected Goal: Absence of active bleeding Outcome: Progressing as expected [facility] 2025-03-14 16:56:08 Images from the original note were not included. This note was copied from a baby's chart. Assessment (most recent) Assessment - 03/14/25 1650 General Information Visit Initial ; father of the baby is present and participating in the consultation Mom's age (years) 23 years Gestational age 39.2 weeks 2 Parity 1 Living Children 1 Feeding plan Breast has exclusively breastfed since delivery Attended class Yes plans As long as possible Planned maternity leave 12 Weeks Breast Pump Has Breast Pump [employer] Financial Class WIC;Medicaid Delivery method Breast changes during Enlarged;Tenderness;Darken ing of areola Periods Regular Risk factors Anemia;Obesity;PIH GBS+ Breast Surgery/ History None Oral Assessment Oral assessment New assessment Date of 03/14/25 Time of 0345 Infant location Mother Baby Unit Chin Normal Palate assessment High Tongue assessment Normal Restricted tongue motion observed Able to cup finger;Able to strip gloved finger Upper lip assessment Can flange;Normal head assessment No abnormalities Is this a multiple ? No Breast Assessment Breast Assessment Initial Symmetry Symmetrical Size M (B-C) Shape Rounded;Pendulous Other Soft Scars on breast: No Nipple & Areola Assessment Left Areola Pliable Right Areola Pliable Left Nipple Colostrum visible;Intact;Everted;Tessa rts w/stimulation;Short;Small Right Nipple Colostrum visible;Intact;Everted;Tessa rts w/stimulation;Short;Small Literature Resources Resources Understanding Mother and Baby Care; channel Education hunger cues;On-demand feeds at least 8 or more over 24 hours;Diaper counts/color;Delay of pacifier/artificial nipples up to 4 weeks;Benefits of skin to skin contact;Signs of an effective latch; stomach size;2nd day/growth spurt cluster feeds;Lactogenesis;Ways to increase milk supply Handouts given [place] [employer] Electrical Engineering Officer Observation Pumping No Assist with latch;Observed;Reported;Mo m states infant latches well with no pain Position left side Football; latched effectively;Suckled in coordinated bursts;Nipple rounded upon release came off content; remains skin to skin on mothers chest Interventions Placed skin to skin shown how to closely hold; align his position; use her forearm to provide full back support; bring the baby in for a deep chin led latch Mother demonstrated teach back of Positioning and latching infant at breast Follow up Follow up in hospital;Mom will call staff;[facility] warmline;WIC Recommended Feeding Plan Recommended feeding plan Frequent zmto-hf-heqg time with parents;On-demand , 8-12 times in 24 hours not to exceed 6 hours between feeds OTHER $ SERVICES Initial Amy RODRIGUEZ, RNC-OB, IBCLC [facility] 2025-03-14 09:00:54 Patient: Farzaneh Hodge Procedure Summary Date: 03/13/25 Room / Location: Anesthesia Start: 0330 Anesthesia Stop: 03/14/25 0505 Procedure: CENTRAL NEURAXIAL BLOCK Diagnosis: Scheduled Providers: Responsible Provider: Parth Novak MD Anesthesia Type: Epidural ASA Status: 3 Anesthesia Type: Epidural Last vitals BP Temp Pulse Resp SpO2 There were no known notable events for this encounter. Anesthesia Post Evaluation Patient location during evaluation: floor Patient participation: complete - patient participated Level of consciousness: awake Pain score: 1 Pain management: satisfactory to patient Airway patency: patent Cardiovascular status: acceptable and blood pressure returned to baseline Respiratory status: acceptable Hydration status: acceptable AN-ANESTHESIOLOGY ANESTHESIOLOGIST [facility] 2025-03-14 04:12:51 VAGINAL DELIVERY NOTE Delivery Date: 03/14/2025 Delivery Time: 3:45 AM Delivery Summary Pre-delivery diagnosis: The patient was admitted to the Labor & Delivery unit for scheduled IOL at 39 weeks due to elective induction. Post-delivery diagnosis: s/p Ilya- Weight: 3555 g 1 Minute 5 Minute 10 Minute Totals: 7 8 Cord gases obtained: Yes Primary delivering resident: Mohini Swift MD Teaching Resident: Karma Rosen MD OB Faculty: ELIZABETH QUINONEZ Intrapartum Anesthesia/Analgesia: Epidural Labor Complications:None Additional Complications: None EBL: 350 Uterotonics: Yes - additional IV pitocin TXA given: No Pediatrics was present at delivery: No DELIVERY OF BAEZ FETUS WITH CEPHALIC PRESENTATION ROUTINE VAGINAL DELIVERY Vaginal delivery of head with cephalic position, occipital anterior. As the head crowned and distended the perineum, no episiotomy was performed. A blue towel was used to protect the perineum as the head crowned and delivered. The other hand was used to exert pressure on the occiput to control the delivery of the head. The perineum was pushed with a towel-draped hand as the head and mouth was delivered over the perineum. The head was allowed to rotate externally to match the shoulder with face to maternal left. The left shoulder was anterior. Examination of neck revealed nuchal cord, which was Loose umbilical cord - reduced. The The shoulder was delivered by gentle downward traction applied to head and downward traction for the delivery of anterior shoulder. This was followed by This was followed by upward traction with delivery of posterior shoulder and body. After the delivery of , bulb suction was performed from oropharynx and nostril with removal of clear amniotic fluid. A male was delivered. Delayed cord clamping done Yes. The umbilical cord was double clamped, cut and the was handed off the field to the circulating nurse. PLACENTA Placenta was delivered spontaneously while the abdominal hand lifted the uterus cephalad and other hand keeping the umbilical cord slightly taut. Placenta delivered intact: yes FOURTH STAGE Fourth stage of labor was managed by uterine massage with abdominal hand and infusion 30 units of pitocin mixed with intravenous fluid. OBSTETRICAL LACERATION(S): Episiotomy no Laceration type(s): Laceration Repair: First degree laceration repaired in continuous running fashion using 2-0 chromic suture. Left labial laceration repaired in continuous running fashion with same suture. Vaginal Counts: Initial count personnel: MARGIE FREIRE Initial count verified by: DELFINA Rajput Initial Count 0 5 Added Counts 1 0 Final Count 1 5 Final count personnel: MARGIE FREIRE Final count verified by: DELFINA JOHNSON Accurate final count? Yes Mohini Swift MD Cosigned by Elizabeth Quinonez MD at 03/14/2025 12:18 PM CDT Associated attestation - Elizabeth Quinonez MD - 03/14/2025 12:18 PM CDT I was present for delivery of a viable infant. No immediate complications noted. I agree with Dr. Swift' delivery note. Elizabeth Quinonez MD [facility] 2025-03-13 19:54:37 Problem: Intrapartum process (including labor pain) Goal: Absence of or reduction of complications of labor Outcome: Progressing as expected Goal: Able to cope with pain Outcome: Progressing as expected Goal: Adequate to move to next level of care Outcome: Progressing as expected Goal: Reduction in pain sensation Outcome: Progressing as expected Problem: Falls, Risk of Goal: Absence of falls Outcome: Progressing as expected Problem: Pain Goal: Control of pain at or below patient's documented comfort goal Outcome: Progressing as expected Goal: Reduction in pain sensation Outcome: Progressing as expected Problem: Complications of preeclampsia/eclampsia (risk or actual) Goal: Absence of seizure activity Outcome: Progressing as expected Goal: Absence of signs and symptoms of preeclampsia Outcome: Progressing as expected Problem: Bleeding, Risk of Goal: Absence of impaired coagulation signs and symptoms Outcome: Progressing as expected Goal: Absence of active bleeding Outcome: Progressing as expected Philippe Goins RN [facility] 2025-03-13 07:11:45 Problem: Intrapartum process (including labor pain) Goal: Absence of or reduction of complications of labor Outcome: Progressing as expected Goal: Able to cope with pain Outcome: Progressing as expected Goal: Adequate to move to next level of care Outcome: Progressing as expected Goal: Reduction in pain sensation Outcome: Progressing as expected Problem: Falls, Risk of Goal: Absence of falls Outcome: Progressing as expected Problem: Pain Goal: Control of pain at or below patient's documented comfort goal Outcome: Progressing as expected Goal: Reduction in pain sensation Outcome: Progressing as expected Problem: Complications of preeclampsia/eclampsia (risk or actual) Goal: Absence of seizure activity Outcome: Progressing as expected Goal: Absence of signs and symptoms of preeclampsia Outcome: Progressing as expected Problem: Bleeding, Risk of Goal: Absence of impaired coagulation signs and symptoms Outcome: Progressing as expected Goal: Absence of active bleeding Outcome: Progressing as expected Kaylan Maria RN [facility] 2025-03-13 03:18:39 Name/ MRN / Age / Gender: Farzaneh Hodge, [id number] 24 year old female BMI: Estimated body mass index is 48.36 kg/m? as calculated from the following: Height as of this encounter: 1.6 m (5' 3"). Weight as of this encounter: 123.8 kg (273 lb). Allergies: Patient has no known allergies. Last Vitals: BP Readings from Last 1 Encounters: 03/13/25 113/66 Pulse Readings from Last 1 Encounters: 03/13/25 71 SpO2 Readings from Last 1 Encounters: 03/13/25 100% Date of Surgery: Surgeon: * Surgery not found * Procedure: CENTRAL NEURAXIAL BLOCK OR Location: * No surgery found * Anesthesia Preop Eval (physical exam) Anesthesia Preop: Chart Review and Jrye-dh-Bnhl [facility] Communication: 24 year old female at 39w1d requesting central neuraxial anesthesia PONV Risk Factors: female Anesthesia History Anesthesia History Negative (-) Hx of anesthetic complications Previous Anesthetics/Airways Cardiovascular Negative Cardiac ROS Comments: BP Readings from Last 3 Encounters: 03/13/25 : 113/66 03/06/25 : 120/78 02/27/25 : 133/88 Pulmonary Negative Pulmonary ROS Neuro/Musculoskeletal (-) Spinal Cord injury (-) Positioning limitations (+) Obesity and morbid obesity GI/Hepatic Negative GI/Hepatic ROS Hematology Comments: HGB (g/dL) Date Value 03/12/2025 10.2 (L) PLT (10*3/?L) Date Value 03/12/2025 195 - Spherocytosis (+) Anemia Type and Screen Ordered: Yes Patient Accepts Blood Transfusion: Yes Renal Negative Renal ROS Skin Negative Skin ROS Endo/Other Negative Endo/Other ROS Comments: No results found for: "[id number]" No results found for: "HGBA1C" Other [facility] Comments: 24 year old female at 39w1d requesting central neuraxial anesthesia IOL/cervical ripening: -Reviewed different options especially with Rueda score. Patient does not desire Leone bulb placement. She states very hungry and wants food before ripening starts. Can have regular diet x 1 before cervical ripening. -Misoprostol 25 mcg vaginal. Leone bulb will be attempted if patient consents later -Patient plans to breast and formula feeding. -Options for analgesia/anesthesia reviewed with patient. Patient plans on an epidural for analgesia/anesthesia prn. Antepartum course reviewed: - 1 h 130, sero negative, Rimmune, VZVnot immune, -A positive/IAT negative, GBS positive, PAP Negative in 2023 per patient - H/H, plt: 10.7 / 30.5, 207 on 02/21/2025 - PP control plan: Condom - [place] RWSP Fetus: - Presentation on admission: cephalic - Posterior Fundal placenta - EFW: 8 lbs - FHT reactive and reassuring - Two Vessel Cord. - NIPT: low risk and, AFP: Neg -Maternal Carrier Screen Neg P: 1 Pediatric Pediatric N/A N/A Preoperative Medication Instructions Continue taking all prescribed medications except: PHILIP inhibitors, ARBs, diuretics, all oral diabetes medications Anticoagulant Therapy: Defer to surgeons Insulin: Take 1/2 dose the night prior to surgery. Hold on DOS. Phentermine: Alert [facility] anesthesiologist SGLT2 Inhibitors: "gliflozins" to be held for 3 days prior to elective surgeries GLP1 Agonosit: stop 7 days prior to surgery MAC Cases: Continue taking PHILIP inhibitors and ARBs ASA Classification ASA: 3 Labs: Chemistry - CBC 03/12/2025 - - - - 13.69 (H) 10.2 (L) 195 - - 0.66 28.1 (L) eGFR: 126.6 Date: 03/12/2025 ANC: 11.12 (H) Date: 03/12/2025 LFTs 03/12/2025 Coags AST: 24 AP: - Prot: - Ca: - PT: - Date: - ALT: 17 T Andrei: - Alb: - PTT: - Date: - PO4: - Date: - INR: - Date: - Cardiac Endocrine & other pBNP: - Date: - A1C: - Date: - Trop I: - Date: - POCT A1C: - Date: - CK: - Date: - TSH: - Date: - CKMB: - Date: - FT4: - Date: - LDL: - Date: - Lact: - Date: - Procal: - Date: - Respiratory -|-|-|-|- D-dimer: - ABG Date: - Date: - Miscellaneous Type and Screen: A POSITIVE Antibody: Negative Date: 03/12/2025 POCT : Positive Date: 12/14/2024 Current Medications: No outpatient medications have been marked as taking for the 03/12/25 encounter (Hospital Encounter). Previous Surgeries: Past Surgical History: Procedure Laterality Date CHOLECYSTECTOMY 2020 TONSILLECTOMY WITH ADENOIDECTOMY 2001 Anesthesia Physical Exam General no apparent distress and alert and oriented x 3 Neuro/Psych neurological Dental no notable dental hx Abdominal (+) abdomen soft, benign and gravid Airway Mallampati score:III TM distance:> 5 cm Mouth opening:normal Extremity Pulmonary Other Cardiovascular Rhythm:regular Rate: normal Anesthesia Plan ASA Status: 3 Plan discussed during pre-op evaluation: General, Epidural, Spinal and CSE Anesthetic plan on DOS: Epidural Anesthesia plan discussed with: patient or termite control representative Post-Operative Analgesia: routine analgesia & antiemetics Recovery Plan: PACU and LDR Additional comments: AN-ANESTHESIOLOGY ANESTHESIOLOGIST [facility] 2025-03-13 02:30:54 Problem: Intrapartum process (including labor pain) Goal: Absence of or reduction of complications of labor Outcome: Progressing as expected Goal: Able to cope with pain Outcome: Progressing as expected Goal: Adequate to move to next level of care Outcome: Progressing as expected Goal: Reduction in pain sensation Outcome: Progressing as expected Problem: Falls, Risk of Goal: Absence of falls Outcome: Progressing as expected Problem: Pain Goal: Control of pain at or below patient's documented comfort goal Outcome: Progressing as expected Goal: Reduction in pain sensation Outcome: Progressing as expected Problem: Complications of preeclampsia/eclampsia (risk or actual) Goal: Absence of seizure activity Outcome: Progressing as expected Goal: Absence of signs and symptoms of preeclampsia Outcome: Progressing as expected Anastasiia Hartmann RN [facility] 2025-03-12 20:28:43 Problem: Intrapartum process (including labor pain) Goal: Absence of or reduction of complications of labor Outcome: Progressing as expected Goal: Able to cope with pain Outcome: Progressing as expected Goal: Adequate to move to next level of care Outcome: Progressing as expected Goal: Reduction in pain sensation Outcome: Progressing as expected Problem: Falls, Risk of Goal: Absence of falls Outcome: Progressing as expected Problem: Pain Goal: Control of pain at or below patient's documented comfort goal Outcome: Progressing as expected Goal: Reduction in pain sensation Outcome: Progressing as expected Problem: Complications of preeclampsia/eclampsia (risk or actual) Goal: Absence of seizure activity Outcome: Progressing as expected Goal: Absence of signs and symptoms of preeclampsia Outcome: Progressing as expected Problem: Bleeding, Risk of Goal: Absence of impaired coagulation signs and symptoms Outcome: Progressing as expected Goal: Absence of active bleeding Outcome: Progressing as expected [facility] 2025-03-12 17:50:00 Problem: Intrapartum process (including labor pain) Goal: Absence of or reduction of complications of labor 03/12/20251748 by Violet Conner RN Outcome: Progressing as expected 03/12/2025 1552 by Violet Conner RN Outcome: Progressing as expected Goal: Able to cope with pain 03/12/2025 174 by Violet Conner RN Outcome: Progressing as expected 03/12/2025 1552 by Violet Conner RN Outcome: Progressing as expected Goal: Adequate to move to next level of care 03/12/20251748 by Violet Conner RN Outcome: Progressing as expected 03/12/2025 1552 by Violet Conner RN Outcome: Progressing as expected Goal: Reduction in pain sensation 03/12/20251748 by Violet Conner RN Outcome: Progressing as expected 03/12/2025 1552 by Violet Conner RN Outcome: Progressing as expected Violet Conner RN [facility] 2025-03-12 15:52:51 Problem: Intrapartum process (including labor pain) Goal: Absence of or reduction of complications of labor Outcome: Progressing as expected Goal: Able to cope with pain Outcome: Progressing as expected Goal: Adequate to move to next level of care Outcome: Progressing as expected Goal: Reduction in pain sensation Outcome: Progressing as expected [facility] 2025-02-13 09:44:55 Patient stated she has been having constant cramping for 3 days rated an 810. Stated she lost her mucus plug on Wednesday, no leakage from vagina, states she has positive movements. Denies taking any Tylenol, has tried using a heating pad and hot showers but has not had relief. Per provider pt to be seen today in clinic at 11. [facility] 2025-02-13 09:41:39 Farzaneh Hodge is a 24 year old female Patient lost mucus plug on Wednesday and Wednesday 35wks patient has been cramping x 3days pressure is intense and can't walk or move transferred to clinic. Karis John [facility] 2025-01-18 20:34:01 Pt arrived ambulatory without assist. Pt c/o cramping pain that travels to her back that does not go away, pt reports losing part of her mucus plug with some blood. Pt assessed by Stella Negrete during triage. 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 Stated now only the right hand is swollen but no itching, denies any other symptoms at this time. [place] noticed the swelling. Advised per provider to monitor swelling and elevate right arm and if symptoms worsen or new symptoms arise to be evaluated in urgent care, verbalized understanding. Leti Haines [employer] [facility] 2024-12-22 15:25:47 Farzaneh Hodge is a 24 year old female Pt stats hand started swelling about 30 minutes. Left had started going back to normal but right hand is still swollen. Hands felt like on fire and itching and when she expanded hands it felt like the circulation was tight. Please call pt at [phone] (home) Rosetta Mast [facility] 2024-12-19 12:57:47 Patient informed of results and new orders, verbalized understanding. Leti Haines [employer] [facility] 2024-12-19 12:49:19 Please notify the patient she is anemic iron and vitamin c have been sent to her pharmacy on file. She should continue taking her pnv. JOSE Hernandez 12/19/2024 12:50 PM [facility] 2024-12-16 23:07:28 Pt arrived ambulatory with family. Complain of increased SOB since Wednesday, mid back pain, lower abdominal pain with her abdomen tightening up. 26 week gestation. G [address] [facility] Rahel Lazo RN [facility] 2024-12-14 09:45:00 Addended by: ANDREE BERRY on: 12/15/2024 12:15 PM Modules accepted: Orders Andree Berry [facility] Frank Bunch [facility]2024-11-06 00:00:00 Frank Bunch [facility]2024-05-24 02:29:55 Pt discharged with diagnosis of left flank pain. Printed and verbal instructions reviewed with and given to patient. Prescriptions given x 0. Pt verbalized understanding of teaching, and recommended follow-up. Denies questions or concerns at this time. Pt ambulatory at discharge. Appears in no apparent distress. No ataxia noted. [id number] decided to hold off on MONO lab due to PMHx. [id number]:52[facility]55 Pt unable to void at this time. T Vadim Bergman [facility]2024-05-24 00:10:26 Patient reports left flank pain that radiates to the right side. Ibuprofen around 2 pm today. Denies . [facility]
[2025-05-16] MEDS ORDERED: NA CHLORIDE 0.9% 1,000 ML ONE (11:20)
--- NOTE | 2025-05-16 12:13 | RAD REPORT ---
EXAMINATION: US Transvaginal Study Probe CLINICAL INDICATION: Female 24 years old. Abd pain;Vaginal bleeding Bed Name: TECHNIQUE: Real-time ultrasonography of the pelvis was performed transvaginally. Color and spectral D oppler evaluation of the ovaries was performed. COMPARISON: No prior exam. FINDINGS: UTERUS AND CERVIX: The uterus measures 7.5 cm in length. The uterus is retroverted. No masses seen. T he endometrium is normal, 0.5 cm in thickness. RIGHT OVARY: Normal apart from a dominant 1.5 cm cyst/follicle. The right ovary measures 3.7 x 2.2 x 3.2 cm. Normal color and spectral Doppler evaluation of the right ovary.. LEFT OVARY: Normal The left ovary measures 2.5 x 1.4 x 1.9 cm. Normal color and spectral Doppler evaluation of the left ovary.. FREE FLUID: Trace fluid at the fundus, likely physiologic. IMPRESSION: Retroverted uterus. No acute abnormalities. Other incidental findings as above.
[2025-05-16 12:33] LABS: Absolute Lymphocytes (CBC) 0.9 K/uL (0.7-4.9); Hematocrit 24.4 % (36.0-45.0); Hemoglobin 8.7 g/dL (12.0-15.0); MCH 29.6 pg (27.0-35.0); MCHC 35.7 g/dL (32.0-36.0); MCV 82.8 fL (80-100); MPV 7.6 fL (7.6-11.3); Nucleated RBC Absolute Count 0.0 (0-0); Nucleated Red Blood Cells % 0.1 % (0-0); RBC Red Blood Cell Count 2.95 M/uL (3.86-4.86); White Blood Count 5.20 thou/uL (4.3-10.9)
[2025-05-16 12:36] LABS: Sqamous Epithelial <5 /HPF (None Seen); Urine Culture Reflex Order NOT NEEDED; Urine Microscopic Reflex YN ORDER UMIC
[2025-05-16 12:54] LABS: Anion Gap 6.7 mEq/L (5.0-15.0); BUN Blood Urea Nitrogen 11 mg/dL (7-18); Glucose Level 86 mg/dL (74-106); Potassium 3.7 mEq/L (3.5-5.1)
[2025-05-16 12:56] LABS: HCG, Quantitative < 1 mIU/mL (1-3)
[2025-05-16] MEDS ORDERED: CEFTRIAXONE 1000 MG/VIAL ONE (12:57)
[2025-05-16] MEDS ORDERED: NA CHLORIDE 0.9% 100 ML ONE (12:57)
--- NOTE | 2025-05-16 13:01 | ER ---
Nurse's Notes [facility] Name: Elizabeth Hodge Age: 24 yrs Sex: Female : 2000 Arrival Date: 05/16/2025 Time: 09:25 Bed 16 Private MD: Diagnosis: Abnormal uterine and vaginal bleeding, unspecified;Other specified abnormal uterine and vaginal bleeding;UTI/ Urinary tract infection, site not specified;Anemia, unspecified Presentation: 05/16 09:40 Chief complaint: Patient states: 8 weeks PP, first cycle started 4 days ago, heavy jl7 vaginal bleeding, reports headache, denies lightheadedness. Coronavirus screen: At this time, the client does not indicate any symptoms associated with coronavirus-19. Ebola Screen: No symptoms or risks identified at this time. Initial Sepsis Screen: Does the patient meet any 2 criteria? No. Patient's initial sepsis screen is negative. Does the patient have a suspected source of infection? No. Patient's initial sepsis screen is negative. Risk Assessment: Do you want to hurt yourself or someone else? Patient reports no desire to harm self or others. Onset of symptoms was May 12, 2025. 09:40 Method Of Arrival: Ambulatory jl7 09:40 Acuity: HAIR 3 jl7 Triage Assessment: 09:42 General: Appears in no apparent distress. uncomfortable, Behavior is calm, cooperative, jl7 appropriate for age. Pain: Complains of pain in headache. 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 - Infectious Disease History:: Denies. - Social history:: Smoking status: Reported history of juuling and/or vaping. - Family history:: not pertinent. Screenin:00 [facility] ED Fall Risk Assessment (Adult) History of falling in the last 3 months, me1 including since admission No falls in past 3 months (0 pts) Confusion or Disorientation No (0 pts) Intoxicated or Sedated No (0 pts) Impaired Gait No (0 pts) Mobility Assist Device Used No (0 pt) Altered Elimination No (0 pt) Score/Fall Risk Level 0 - 2 = Low Risk Maintained a safe environment, Provided non-skid footwear, Hourly rounding (assess needs \T\ fall precautionary measures) done. Abuse screen: Denies threats or abuse. Nutritional screening: No deficits noted. Tuberculosis screening: No symptoms or risk factors identified. Assessment: 10:00 General: Appears in no apparent distress. well groomed, well developed, Behavior is me1 calm, cooperative, appropriate for age, Reports 8 weeks PP, first cycle started 4 days ago, heavy vaginal bleeding. Pain: Denies pain. Neuro: Level of Consciousness is awake, alert, obeys commands, Oriented to person, place, time, situation, Appropriate for age. Cardiovascular: Patient's skin is warm and dry. Respiratory: Airway is patent Respiratory effort is even, unlabored, Respiratory pattern is regular, symmetrical. GI: No signs and/or symptoms were reported involving the gastrointestinal system. : Reports vaginal bleeding that is bright red, with clots, heavy flow since 4 days ago. EENT: No signs and/or symptoms were reported regarding the EENT system. Derm: Skin is intact, is healthy with good turgor, Skin is normal. Musculoskeletal: No signs and/or symptoms reported regarding the musculoskeletal system. Circulation, motion, and sensation intact. Range of motion: intact in all extremities. 12:12 Reassessment: Pt refuses any additional stick for blood collection, ERD notified, VO to jl7 obtain orthostatics. 13:42 Reassessment: Discharge delayed for rocephin to complete. me1 Vital Signs: 09:40 BP 126 / 72; Pulse 69; Resp 17; Temp 98; Pulse Ox 100% ; Weight 108.86 kg; Height 5 ft. jl7 4 in. ; Pain 0/10; 10:00 BP 104 / 68; Pulse 72; Resp 16; Pulse Ox 100% ; me1 11:00 BP 105 / 61; Pulse 59; Resp 15; Pulse Ox 100% ; me1 12:00 BP 119 / 77; Pulse 66; Resp 14; Pulse Ox 100% ; me1 12:58 BP 124 / 72 Supine; Pulse 63; me1 12:59 BP 125 / 66 Sitting; Pulse 77; me1 13:00 BP 126 / 73 Standing; Pulse 71; Resp 15; Pulse Ox 100% ; me1 09:40 Body Mass Index 41.20 (108.86 kg, 162.56 cm) jl7 09:40 Pain Scale: Adult jl7 ED Course: 09:32 Patient arrived in ED. dr5 09:32 Arnold Gutierrez MD is Attending Physician. david 09:42 Triage completed. jl7 09:42 Arm band placed on right wrist. jl7 10:00 Patient has correct armband on for positive identification. Bed in low position. Call me1 light in reach. Side rails up X 1. Provided Education on: POC. Verbalized understanding.. Client placed on continuous cardiac and pulse oximetry monitoring. NIBP monitoring applied. Pulse ox on. NIBP on. 10:00 No provider procedures requiring assistance completed. me1 10:36 Polina Sweeney, RN is Primary Nurse. iw 11:57 US Transvaginal Study (Probe) In Process Unspecified. EDMS 12:00 Missed attempt(s): 22 gauge in left antecubital area. Bleeding controlled, band aid jl7 applied, catheter tip intact. 12:08 Missed attempt(s): 24 gauge in left forearm. Bleeding controlled, band aid applied, jl7 catheter tip intact. 12:26 Initial lab(s) drawn, by ct, sent to lab. Urine collected: clean catch specimen, me1 cloudy, blood tinged. Inserted saline lock: 22 gauge in left upper arm, using aseptic technique. Blood collected. Flushed with 10 mL NS. 12:26 UA Rfx Dave Cult if indicated Sent. me1 12:26 Type And Screen Sent. me1 12:27 Basic Metabolic Panel Sent. me1 12:27 CBC with Diff Sent. me1 12:27 Test, Urine Sent. me1 12:27 Quantitative Hcg Sent. me1 13:00 Noelle Hanley MD is Referral Physician. david 13:41 IV discontinued, intact, bleeding controlled, No redness/swelling at site. Pressure me1 dressing applied. Administered Medications: 12:26 Drug: NS 0.9% IV 1000 ml IV at 1000 ml once; to be given as a bolus over 60 minutes me1 Route: IV; Rate: 1000 ml; Site: left upper arm; 13:07 Follow up: Response: No adverse reaction; IV Status: Completed infusion; IV Intake: me1 1000ml 13:02 Drug: Rocephin IV 1 grams IV at per protocol once; Given slow IV push per pharmacy ct1 instructions Route: IV; Rate: per protocol; Site: left upper arm; 13:42 Follow up: Response: No adverse reaction; IV Status: Completed infusion me1 Medication: 10:00 VIS not applicable for this client. me1 Intake: 13:07 IV: 1000ml; Total: 1000ml. ct1 Outcome: 13:00 Discharge ordered by . david 13:41 Discharged to home ambulatory, [facility] 13:41 Condition: stable 13:41 Discharge instructions given to patient, Instructed on discharge instructions, follow up and referral plans. medication usage, Demonstrated understanding of instructions, follow-up care, medications, Prescriptions given X 3, 13:42 Patient left the ED. [facility] Signatures: Dispatcher [employer] EDMS Arnold Gutierrez MD MD cha Williams, Irene RN Antoinette Iniguez RN RN jlChiara Hernandez RN RN ct1 Michael Valles, INCIDENT RESPONSE COORDINATOR-C INCIDENT RESPONSE COORDINATOR-Cdr5 Corrections: (The following items were deleted from the chart) 12:47 12:27 ABO/RH TYPING+BB.LAB.BRZ drawn and sent. [facility] [place] EDIL 13:05 09:40 Chief complaint: Patient states: 8 weeks PP, first cycle started 4 days ago, me1 heavy vaginal bleeding, reports headache, denies lightheadedness jl7
--- NOTE | 2025-05-16 13:01 | EDPHYS ---
Physician Documentation [facility] Name: Elizabeth Hodge Age: 24 yrs Sex: Female : 2000 Arrival Date: 05/16/2025 Time: 09:25 Bed 16 Private MD: ED Physician Arnold Gutierrez HPI: 05/16 12:54 This 24 yrs old Female presents to ER via Ambulatory with complaints of heavy david vaginal bleeding, sp 2 WEEKS. 12:54 The patient presents with vaginal bleeding that is moderate. Onset: The david symptoms/episode began/occurred 5 day(s) ago. Modifying factors: The symptoms are alleviated by nothing, the symptoms are aggravated by nothing. Associated signs and symptoms: The patient has no apparent associated signs or symptoms. Severity of symptoms: At their worst the symptoms were moderate, in the emergency department the symptoms are unchanged. The patient is sexually active, reportedly has a single partner. The patient has not experienced similar symptoms in the past. 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 - Infectious Disease History:: Denies. - Social history:: Smoking status: Reported history of juuling and/or vaping. - Family history:: not pertinent. ROS: 12:54 Constitutional: Negative for fever, chills, and weight loss, Eyes: Negative for injury, david pain, redness, and discharge, ENT: Negative for injury, pain, and discharge, Neck: Negative for injury, pain, and swelling, Cardiovascular: Negative for chest pain, palpitations, and edema, Respiratory: Negative for shortness of breath, cough, wheezing, and pleuritic chest pain, Abdomen/GI: Negative for abdominal pain, nausea, vomiting, diarrhea, and constipation, Back: Negative for injury and pain, MS/Extremity: Negative for injury and deformity, Skin: Negative for injury, rash, and discoloration, Neuro: Negative for headache, weakness, numbness, tingling, and seizure, Psych: Negative for depression, anxiety, suicide ideation, homicidal ideation, and hallucinations, Allergy/Immunology: Negative for hives, rash, and allergies, Endocrine: Negative for neck swelling, polydipsia, polyuria, polyphagia, and marked weight changes, Hematologic/Lymphatic: Negative for swollen nodes, abnormal bleeding, and unusual bruising, 12:54 : Positive for vaginal bleeding, Exam: 12:54 Constitutional: This is a well developed, well nourished patient who is awake, alert, david and in no acute distress. Head/Face: Normocephalic, atraumatic. Eyes: Pupils equal round and reactive to light, extra-ocular motions intact. Lids and lashes normal. Conjunctiva and sclera are non-icteric and not injected. Cornea within normal limits. Periorbital areas with no swelling, redness, or edema. ENT: Nares patent. No nasal discharge, no septal abnormalities noted. Tympanic membranes are normal and external auditory canals are clear. Oropharynx with no redness, swelling, or masses, exudates, or evidence of obstruction, uvula midline. Mucous membranes moist. Neck: Trachea midline, no thyromegaly or masses palpated, and no cervical lymphadenopathy. Supple, full range of motion without nuchal rigidity, or vertebral point tenderness. No Meningismus. Chest/axilla: Normal chest wall appearance and motion. Nontender with no deformity. No lesions are appreciated. Cardiovascular: Regular rate and rhythm with a normal S1 and S2. No gallops, murmurs, or rubs. Normal PMI, no JVD. No pulse deficits. Respiratory: Lungs have equal breath sounds bilaterally, clear to auscultation and percussion. No rales, rhonchi or wheezes noted. No increased work of breathing, no retractions or nasal flaring. Abdomen/GI: Soft, non-tender, with normal bowel sounds. No distension or tympany. No guarding or rebound. No evidence of tenderness throughout. Back: No spinal tenderness. No costovertebral tenderness. Full range of motion. Skin: Warm, dry with normal turgor. Normal color with no rashes, no lesions, and no evidence of cellulitis. MS/ Extremity: Pulses equal, no cyanosis. Neurovascular intact. Full, normal range of motion., bilateral aka Neuro: Awake and alert, GCS 15, oriented to person, place, time, and situation. Cranial nerves II-XII grossly intact. Motor strength 5/5 in all extremities. Sensory grossly intact. Cerebellar exam normal. Normal gait. Psych: Awake, alert, with orientation to person, place and time. Behavior, mood, and affect are within normal limits. Vital Signs: 09:40 BP 126 / 72; Pulse 69; Resp 17; Temp 98; Pulse Ox 100% ; Weight 108.86 kg; Height 5 ft. jl7 4 in. ; Pain 0/10; 10:00 BP 104 / 68; Pulse 72; Resp 16; Pulse Ox 100% ; me1 11:00 BP 105 / 61; Pulse 59; Resp 15; Pulse Ox 100% ; me1 12:00 BP 119 / 77; Pulse 66; Resp 14; Pulse Ox 100% ; me1 12:58 BP 124 / 72 Supine; Pulse 63; me1 12:59 BP 125 / 66 Sitting; Pulse 77; me1 13:00 BP 126 / 73 Standing; Pulse 71; Resp 15; Pulse Ox 100% ; me1 09:40 Body Mass Index 41.20 (108.86 kg, 162.56 cm) 7 09:40 Pain Scale: Adult jl7 MDM: 09:32 Medical Screening Exam initiated david 12:58 Differential diagnosis: menometrorrhagia, menorrhea, nonspecific abdominal pain, david hemorrhage, urinary tract infection. Data reviewed: vital signs, nurses notes, lab test result(s), radiologic studies, ultrasound. Consideration of Admission/Observation Escalation of care including admission/observation considered. I considered the following discharge prescriptions or medication management in the emergency department Medications were administered in the Emergency Department. See MAR. Independent interpretation of the following test(s) in the Emergency Department Radiology Department Ultrasound: My interpretation is VAG PROBE USG. Test considered but Not performed: CT: NO CT ABD PELVIS. Historians other than the Patient: PT WELL INFORMED. Care significantly affected by the following chronic conditions: Obesity. 05/16 10:39 Order name: Basic Metabolic Panel; Complete Time: 13:02 [facility] 05/16 10:39 Order name: CBC with Diff david 05/16 10:39 Order name: Test, Urine; Complete Time: 12:53 [facility] 05/16 10:39 Order name: Quantitative Hcg; Complete Time: 13:02 [facility] 05/16 10:39 Order name: Type And Screen [facility] 05/16 10:39 Order name: UA Rfx Dave Cult if indicated; Complete Time: 12:53 [facility] 05/16 13:11 Order name: CBC Smear Scan EDMS 05/16 10:39 Order name: US Transvaginal Study (Probe); Complete Time: 12:53 [facility] 05/16 10:39 Order name: IV Saline Lock; Complete Time: 12:27 [facility] 05/16 10:39 Order name: Labs collected and sent; Complete Time: 12:27 [facility] 05/16 10:39 Order name: NPO; Complete Time: 10:41 [facility] 05/16 12:11 Order name: Orthostatics; Complete Time: 13:02 jl7 Administered Medications: 12:26 Drug: NS 0.9% IV 1000 ml IV at 1000 ml once; to be given as a bolus over 60 minutes me1 Route: IV; Rate: 1000 ml; Site: left upper arm; 13:07 Follow up: Response: No adverse reaction; IV Status: Completed infusion; IV Intake: me1 1000ml 13:02 Drug: Rocephin IV 1 grams IV at per protocol once; Given slow IV push per pharmacy me1 instructions Route: IV; Rate: per protocol; Site: left upper arm; 13:42 Follow up: Response: No adverse reaction; IV Status: Completed infusion me1 Disposition Summary: 05/16/25 13:00 Discharge Ordered Notes: Location: Home david Problem: new david Symptoms: have improved david Condition: Stable david Diagnosis - Abnormal uterine and vaginal bleeding, unspecified david - Other specified abnormal uterine and vaginal bleeding david - UTI/ Urinary tract infection, site not specified david - Anemia, unspecified david Followup: david - With: Private Physician - When: 2 - 3 days - Reason: Recheck today's complaints, Continuance of care, Re-evaluation by your physician Followup: david - With: Noelle Hanley MD - When: 2 - 3 days - Reason: Recheck today's complaints, Re-evaluation by your physician Discharge Instructions: - Discharge Summary Sheet david - Abnormal Uterine Bleeding david - Iron Deficiency Anemia, Adult david - Anemia david - Menorrhagia david - Urinary Tract Infection, Adult david - Urinary Tract Infection, Adult, [id number] david - Menorrhagia, [id number] david - Abnormal Uterine Bleeding, Afml-hk-Huia david - Iron Deficiency Anemia, Adult, [id number] [facility] Forms: - Medication Reconciliation Form david - Antibiotic Education david - Prescription Opioid Use david - Patient Portal Instructions [facility] - Leadership Thank You Letter [facility] Prescriptions: - cefdinir 300 mg Oral capsule - take 1 capsule ORAL route 2 times per day for 5 days; 5 capsule; Refills: 0, david Product Selection Permitted - Ferrous Sulfate 325 mg (65 mg Iron) Oral Tablet - take 1 tablet ORAL route every 8 hours; 90 tablet; Refills: 0, Product [facility] Selection Permitted Signatures: Dispatcher [employer] EDArnold Lucio MD MD cha Leal, Jahala RN RN jl7 Chiara Leon RN RN me1 Corrections: (The following items were deleted from the chart) 10:40 10:40 Transvaginal Study (Probe)+US.RAD.BRZ ordered. EDMS EDMS 12:47 10:40 ABO/RH TYPING+BB.LAB.BRZ ordered. EDMS EDMS
[2025-05-16 13:10] LABS: Anisocytosis 2+; Blood Morphology Comment NOTED (NOT SEEN); Polychromasia SLIGHT; White Blood Cell Scan OK (OK)
[2025-05-16 17:08] VITALS: TEMP 98; O2SAT 100
[2025-05-16 17:17] VITALS: BP 126/73
== END 2025-05-16 13:42 | disposition home or self-care (01) ==
LOC: ER 09:25
DX: N93.8 Other specified abnormal uterine and vaginal bleeding (principal); D64.9 Anemia, unspecified; N39.0 Urinary tract infection, site not specified
CPT/HCPCS: 85025; 81001; 80048; 36415; 86900; 86850; 81025; 86901; 84702; 76830; J7030; J0696